=== PATIENT | female | born 1975 | race Caucasian/White ===

== ENCOUNTER 2017-06-02 11:06 | Inpatient (IN) | payer OTHER ==
[~2017-06-02] VITALS: Ht 160 cm; Wt 56.1 kg
[~2017-06-02 11:06] MED LIST: ACET500 PO; ALBU90OI INH; ALPR.5 PO; AMOX500 PO; ATEN25 PO; Acyclovir800 MG PO; Ativan0.5 MG PO; Ativan1 MG SL; BCP; BUSP10 PO; CEFU500 PO; CIPR500 PO; CIPRO500 MG PO; Chloraseptic177 ML PO; DIAZ5 PO; DIPH50 PO; DULO30 PO; ERYT.5TO LEFTEYE; Esgic Tablet1 EACH PO; FAMO20 PO; FURO20 PO; GABA400 PO; HYDHCL25 PO; HYDR1TAB94 PO; Humalog100 UNIT/1 SC; INSDET100 SQ; INSLI75/25 SC; INSULANPEN SC; K-Dur 20 meq T20 MEQ PO; LEVFLO500 PO; MAGOXI400 PO; METO100ER PO; MUPI2TO TOP; Macrobid 100 M100 MG PO; NAPR500 PO; Naprosyn500 MG PO; Norco 5-325 Ta1 EACH PO; ONDA4 PO; ONDA4ODT PO; OXYACE5T PO; OXYC1TAB11 PO; PREG50 PO; PREG75 PO; PROM25 PO; Percocet 5-3251 EACH PO; RAMI5 PO; SPACE CHAMBER1 EACH MC; TOCO1000 PO; TOPI100 PO; Ultram50 MG PO; VITB2 PO; Vistaril50 MG PO; Zofran Odt4 MG SL; Zofran8 MG PO
[2017-06-02 11:59] LABS: BASOPHILS ABSOLUTE AUTO 0.03 K/mm3 (0.00-0.23); BASOPHILS PERCENT AUTO 0 % (0-2); EOSINOPHILS ABSOLUTE AUTO 0.14 K/mm3 (0.00-0.68); EOSINOPHILS PERCENT AUTO 1 % (0-6); Hematocrit 38.8 % (33.0-51.0); Hemoglobin 13.3 g/dL (11.5-16.0); IMMATURE GRAN ABSOLUTE AUTO 0.05 K/mm3 (0.00-0.10); IMMATURE GRAN PERCENT AUTO 0 % (0-1); LYMPHOCYTES ABSOLUTE AUTO 1.09 K/mm3 (0.84-5.20); LYMPHOCYTES PERCENT AUTO 8 % (21-46); MONOCYTES ABSOLUTE AUTO 0.76 K/mm3 (0.16-1.47); MONOCYTES PERCENT AUTO 5 % (4-13); Mean Corpuscular HGB 32.9 pg (26.0-34.0); Mean Corpuscular HGB Conc 34.3 g/dL (31.5-36.5); Mean Corpuscular Volume 96 fL (80-100); Mean Platelet Volume 11.7 fL (9.1-12.4); NEUTROPHILS ABSOLUTE AUTO 12.48 K/mm3 (1.96-9.15); NEUTROPHILS PERCENT AUTO 86 % (41-73); Platelet Count 173 K/mm3 (150-400); RDW Coefficient Variation 12.3 % (11.7-14.2); RDW Standard Deviation 43.1 fL (35.1-46.3); Red Blood Cell Count 4.04 M/mm3 (3.80-5.20); White Blood Cell Count 14.55 K/mm3 (4.00-11.30)
[2017-06-02 12:09] LABS: Alanine Aminotransfer (ALT/SGP 19 U/L (12-78); Albumin, Blood 4.4 g/dL (3.4-5.0); Albumin/Globulin Ratio 1.6 (0.8-1.8); Alk Phos 42 U/L (50-136); Anion Gap 10 mmol/L (6-16); Aspartate Aminotrans (AST/SGOT 15 U/L (12-37); Bilirubin, Total 0.7 mg/dL (0.1-1.0); Blood Urea Nitrogen 27 mg/dL (8-24); Bun/Creatinine Ratio 33.6 (12.0-20.0); CO2, Blood 20 mmol/L (21-32); Calcium, Blood 8.6 mg/dL (8.5-10.1); Chloride, Blood 103 mmol/L (98-108); Globulin, Blood 2.7 g/dL (2.2-4.0); Glomerular Filtration Rate >60 (60-); Glucose, Blood 456 mg/dL (70-99); Sodium, Blood 133 mmol/L (136-145); Total Protein, Blood 7.1 g/dL (6.4-8.2)
[2017-06-02 12:11] LABS: Bilirubin, Urine Neg (Neg); Blood, Urine 4+ (Neg); Glucose Qualitative, Urine 4+ (Neg); Ketones, Urine Neg (Neg); Leukocyte Esterase, Urine 2+ (Neg); Nitrite, Urine Pos (Neg); Protein, Urine Neg (Neg); Urobilinogen, Urine NORM (Normal)
[2017-06-02 12:19] LABS: Beta-hydroxybutyrate 3.2 mg/dL (0.2-2.8)
[2017-06-02 12:23] LABS: Appearance, Urine Hazy (Clear); Color, Urine Yellow (P-Yellow)
[2017-06-02 12:24] LABS: Bacteria Mod /hpf; Squamous Epithelial Cells Rare /hpf (Few); White Blood Cells, Urine TNTC /hpf (0-5)
[2017-06-02] MEDS ORDERED: INSULANPEN (12:34)
[2017-06-02] MEDS ORDERED: TRAM50 PO (12:35)
[2017-06-02] MEDS ORDERED: IRON256 MG (12:37)
[2017-06-02] MEDS ORDERED: CHOL10002 PO (16:38)
[2017-06-02] MEDS ORDERED: IRON150C PO (16:39)
[2017-06-03 04:56] LABS: BASOPHILS ABSOLUTE AUTO 0.03 K/mm3 (0.00-0.23); BASOPHILS PERCENT AUTO 1 % (0-2); EOSINOPHILS ABSOLUTE AUTO 0.21 K/mm3 (0.00-0.68); EOSINOPHILS PERCENT AUTO 4 % (0-6); Hemoglobin 10.8 g/dL (11.5-16.0); IMMATURE GRAN PERCENT AUTO 0 % (0-1); LYMPHOCYTES ABSOLUTE AUTO 1.79 K/mm3 (0.84-5.20); LYMPHOCYTES PERCENT AUTO 30 % (21-46); MONOCYTES ABSOLUTE AUTO 0.32 K/mm3 (0.16-1.47); MONOCYTES PERCENT AUTO 5 % (4-13); Mean Corpuscular HGB 32.5 pg (26.0-34.0); Mean Corpuscular HGB Conc 32.7 g/dL (31.5-36.5); Mean Platelet Volume 11.6 fL (9.1-12.4); NEUTROPHILS ABSOLUTE AUTO 3.55 K/mm3 (1.96-9.15); NEUTROPHILS PERCENT AUTO 60 % (41-73); Platelet Count 127 K/mm3 (150-400); RDW Coefficient Variation 12.9 % (11.7-14.2); RDW Standard Deviation 46.6 fL (35.1-46.3); Red Blood Cell Count 3.32 M/mm3 (3.80-5.20)
[2017-06-03 05:06] LABS: Mean Corpuscular Volume 99 fL (80-100)
[2017-06-03 05:29] LABS: Alanine Aminotransfer (ALT/SGP 14 U/L (12-78); Albumin, Blood 2.9 g/dL (3.4-5.0); Albumin/Globulin Ratio 1.3 (0.8-1.8); Alk Phos 28 U/L (50-136); Aspartate Aminotrans (AST/SGOT 12 U/L (12-37); Bilirubin, Total 0.2 mg/dL (0.1-1.0); Blood Urea Nitrogen 21 mg/dL (8-24); Bun/Creatinine Ratio 25.3 (12.0-20.0); CO2, Blood 24 mmol/L (21-32); Calcium, Blood 7.9 mg/dL (8.5-10.1); Chloride, Blood 113 mmol/L (98-108); Creatinine, Blood 0.83 mg/dL (0.40-1.00); Globulin, Blood 2.2 g/dL (2.2-4.0); Glomerular Filtration Rate >60 (60-); Glucose, Blood 64 mg/dL (70-99); Potassium, Blood 4.3 mmol/L (3.5-5.5)
[2017-06-03 05:30] LABS: Anion Gap 7 mmol/L (6-16); Sodium, Blood 144 mmol/L (136-145); Total Protein, Blood 5.1 g/dL (6.4-8.2)
[2017-06-04 05:16] LABS: BASOPHILS ABSOLUTE AUTO 0.02 K/mm3 (0.00-0.23); BASOPHILS PERCENT AUTO 0 % (0-2); EOSINOPHILS ABSOLUTE AUTO 0.12 K/mm3 (0.00-0.68); EOSINOPHILS PERCENT AUTO 3 % (0-6); Hematocrit 33.3 % (33.0-51.0); Hemoglobin 10.9 g/dL (11.5-16.0); IMMATURE GRAN PERCENT AUTO 0 % (0-1); LYMPHOCYTES ABSOLUTE AUTO 1.19 K/mm3 (0.84-5.20); LYMPHOCYTES PERCENT AUTO 26 % (21-46); MONOCYTES ABSOLUTE AUTO 0.23 K/mm3 (0.16-1.47); MONOCYTES PERCENT AUTO 5 % (4-13); Mean Corpuscular HGB 32.8 pg (26.0-34.0); Mean Corpuscular HGB Conc 32.7 g/dL (31.5-36.5); Mean Corpuscular Volume 100 fL (80-100); Mean Platelet Volume 11.3 fL (9.1-12.4); NEUTROPHILS ABSOLUTE AUTO 3.09 K/mm3 (1.96-9.15); NEUTROPHILS PERCENT AUTO 67 % (41-73); Platelet Count 129 K/mm3 (150-400); RDW Coefficient Variation 12.8 % (11.7-14.2); RDW Standard Deviation 46.7 fL (35.1-46.3); Red Blood Cell Count 3.32 M/mm3 (3.80-5.20); White Blood Cell Count 4.65 K/mm3 (4.00-11.30)
[2017-06-04 05:35] LABS: Anion Gap 5 mmol/L (6-16); Blood Urea Nitrogen 16 mg/dL (8-24); Bun/Creatinine Ratio 16.5 (12.0-20.0); CO2, Blood 24 mmol/L (21-32); Chloride, Blood 111 mmol/L (98-108); Creatinine, Blood 0.97 mg/dL (0.40-1.00); Glomerular Filtration Rate >60 (60-); Glucose, Blood 150 mg/dL (70-99); Potassium, Blood 4.2 mmol/L (3.5-5.5); Sodium, Blood 140 mmol/L (136-145)
[2017-06-05] MEDS ORDERED: SACC250C (12:03)
[2017-06-05] MEDS ORDERED: CEFU500T30 PO (12:04)
[2017-06-05] MEDS ORDERED: Zofran4 MG PO (14:06)
[2017-08-31] MEDS ORDERED: TOBRADEX ST EYE5 ML RIGHTEYE (10:27)
[2017-11-25] MEDS ORDERED: HYDR1TAB94 PO (19:30)
[2017-12-15] MEDS ORDERED: Zofran Odt4 MG PO (21:09)
[2018-01-23] MEDS ORDERED: Cheratussin AC118 ML PO (17:15)
[2018-04-16] MEDS ORDERED: Zofran Odt8 MG SL (21:50)
[2018-04-16] MEDS ORDERED: Percocet 5-3251 EACH PO (21:50)
[2018-04-16] MEDS ORDERED: POTCHL20ER PO (21:50)
== END 2017-06-05 13:40 | disposition home or self-care (01) | DRG 690 ==
LOC: ER 11:06 → MEDS 14:10 → ENPENDDIS 06-05 08:00 → MEDS 06-05 13:40
PROVIDERS: Emergency Medicine; Internal Medicine
DX: N10 Acute pyelonephritis (principal); D69.6 Thrombocytopenia, unspecified; E10.40 Type 1 diabetes mellitus with diabetic neuropathy, unspecified; I95.9 Hypotension, unspecified; E10.649 Type 1 diabetes mellitus with hypoglycemia without coma; E86.0 Dehydration; B96.20 Unspecified Escherichia coli [E. coli] as the cause of diseases classified elsewhere; D64.9 Anemia, unspecified; I10 Essential (primary) hypertension; G43.909 Migraine, unspecified, not intractable, without status migrainosus; G44.89 Other headache syndrome; F45.21 Hypochondriasis; Z88.2 Allergy status to sulfonamides; Z88.8 Allergy status to other drugs, medicaments and biological substances; Z88.1 Allergy status to other antibiotic agents; Z91.040 Latex allergy status; Z79.4 Long term (current) use of insulin; Z79.899 Other long term (current) drug therapy; Z87.440 Personal history of urinary (tract) infections; Z86.79 Personal history of other diseases of the circulatory system; Z86.14 Personal history of Methicillin resistant Staphylococcus aureus infection
CPT/HCPCS: 36415; 76770; 80048; 80053; 81001; 82010; 82947; 83605; 85025; 87040; 87077; 87086; 87186; 96361; 96365; 96366; 96375; 96376; 99285; J0696; J1170; J1650; J1885; J2270; J2405; J2550; J7030; J7120

== ENCOUNTER → 2017-07-01 | Outpatient (CLI) | payer OTHER ==
[~2017-07-01] MED LIST changes: +CEFU500T30 PO; +CHOL10002 PO; +Cheratussin AC118 ML PO; +INSULANPEN; +IRON150C PO; +IRON256 MG; +POTCHL20ER PO; +SACC250C; +TOBRADEX ST EYE5 ML RIGHTEYE; +TRAM50 PO; +Zofran Odt4 MG PO; +Zofran Odt8 MG SL; +Zofran4 MG PO
[2017-07-02 18:41] LABS: Protein, Urine Quantitative 9.1 mg/dL (0.0-11.9)
[2017-07-02 18:52] LABS: Microalbumin, Urine Quant. <5.000 mg/L (0.000-20.000)
== END | disposition home or self-care (01) ==
LOC: LAB 20:45 → LAB SHORT 20:45 → LAB FUT 06-28 08:55
PROVIDERS: Internal Medicine Nephrology
DX: N18.2 Chronic kidney disease, stage 2 (mild) (principal); D63.1 Anemia in chronic kidney disease; N25.81 Secondary hyperparathyroidism of renal origin; E55.9 Vitamin D deficiency, unspecified
CPT/HCPCS: 81050; 82043; 84156

== ENCOUNTER → 2017-07-08 | Outpatient (CLI) | payer OTHER | LOC: LAB EV 17:01 | DX: N30.00 Acute cystitis without hematuria (principal) | CPT/HCPCS: 87086 ==

== ENCOUNTER 2017-08-07 15:35 | Emergency (ER) | payer OTHER ==
[~2017-08-07] VITALS: Ht 160 cm; Wt 56.7 kg
[~2017-08-07 15:35] MED LIST changes: -Cheratussin AC118 ML PO; -POTCHL20ER PO; -TOBRADEX ST EYE5 ML RIGHTEYE; -Zofran Odt4 MG PO; -Zofran Odt8 MG SL
[2017-08-31] MEDS ORDERED: TOBRADEX ST EYE5 ML RIGHTEYE (10:27)
[2017-11-25] MEDS ORDERED: HYDR1TAB94 PO (19:30)
[2017-12-15] MEDS ORDERED: Zofran Odt4 MG PO (21:09)
[2018-01-23] MEDS ORDERED: Cheratussin AC118 ML PO (17:15)
[2018-04-16] MEDS ORDERED: Percocet 5-3251 EACH PO (21:50)
[2018-04-16] MEDS ORDERED: POTCHL20ER PO (21:50)
[2018-04-16] MEDS ORDERED: Zofran Odt8 MG SL (21:50)
== END 2017-08-07 17:40 | disposition home or self-care (01) ==
LOC: ER 15:35
DX: M25.561 Pain in right knee (principal); Z91.040 Latex allergy status; Z88.8 Allergy status to other drugs, medicaments and biological substances; Z88.1 Allergy status to other antibiotic agents; Z88.2 Allergy status to sulfonamides; Z79.4 Long term (current) use of insulin; Z79.899 Other long term (current) drug therapy; I10 Essential (primary) hypertension; E11.9 Type 2 diabetes mellitus without complications; R07.9 Chest pain, unspecified; R00.2 Palpitations; R06.02 Shortness of breath; R42 Dizziness and giddiness
CPT/HCPCS: 73562-RT; 78452; 93225; 93226; 93306; 99283; A9500; J0280; J1885; J2785

== ENCOUNTER → 2017-11-13 | Outpatient (CLI) | payer OTHER ==
[~2017-11-13] MED LIST changes: +TOBRADEX ST EYE5 ML RIGHTEYE
== END | disposition home or self-care (01) ==
LOC: LAB SHORT 14:15 → LAB 14:15
DX: Z22.322 Carrier or suspected carrier of Methicillin resistant Staphylococcus aureus (principal)
CPT/HCPCS: 87070; 87077; 87147; 87186; 87205

== ENCOUNTER 2018-02-08 09:07 | Emergency (ER) | payer OTHER ==
[~2018-02-08] VITALS: Ht 160 cm; Wt 57.1 kg
[~2018-02-08 09:07] MED LIST changes: +Cheratussin AC118 ML PO; +Zofran Odt4 MG PO
[2018-02-08 10:40] LABS: Calcium, Ionized (POC) 1.14 mmol/L (1.10-1.46); Chloride (POC) 104 mmol/L (98-108); Glucose (ISTAT POC) 114 mg/dL (70-99); Hemoglobin (POC) 12.2 g/dL (12.0-16.0); Potassium (POC) 3.5 mmol/L (3.5-5.5); Sodium (POC) 139 mmol/L (135-148); Total CO2 (POC) 24 mmol/L (21-32)
[2018-02-08] MEDS ORDERED: Norco 5-325 Ta1 EACH PO (10:50)
[2018-02-08] MEDS ORDERED: Zofran Odt4 MG SL (10:50)
== END 2018-02-08 11:30 | disposition home or self-care (01) ==
LOC: ER 09:07
PROVIDERS: Emergency Medicine
DX: L76.22 Postprocedural hemorrhage of skin and subcutaneous tissue following other procedure (principal); I10 Essential (primary) hypertension; Z91.040 Latex allergy status; Z88.1 Allergy status to other antibiotic agents; Z88.2 Allergy status to sulfonamides; Z91.048 Other nonmedicinal substance allergy status; Z88.8 Allergy status to other drugs, medicaments and biological substances; Z79.899 Other long term (current) drug therapy
CPT/HCPCS: 80047; 85014; 99283

== ENCOUNTER → 2020-08-18 | Outpatient (CLI) | payer OTHER ==
[~2020-08-18] MED LIST changes: +POTCHL20ER PO; +Zofran Odt8 MG SL
[2020-08-19 15:11] LABS: HPV 16 Negative (Negative); HPV 18 Negative (Negative); HPV OTHER HR TYPES Negative (Negative)
== END ==
LOC: LAB SHORT 11:25 → LAB UCHC 11:25
PROVIDERS: Family Medicine
DX: Z09 Encounter for follow-up examination after completed treatment for conditions other than malignant neoplasm (principal); Z87.42 Personal history of other diseases of the female genital tract
CPT/HCPCS: 87624; G0123

== ENCOUNTER 2022-06-06 15:10 | Emergency (ER) | payer OTHER ==
[~2022-06-06] VITALS: Ht 160 cm; Wt 56.7 kg
[2022-06-06 16:08] LABS: BASOPHILS ABSOLUTE AUTO 0.05 K/mm3 (0.00-0.23); BASOPHILS PERCENT AUTO 1 % (0-2); EOSINOPHILS ABSOLUTE AUTO 0.07 K/mm3 (0.00-0.68); EOSINOPHILS PERCENT AUTO 1 % (0-6); Hematocrit 39.2 % (33.0-51.0); Hemoglobin 13.8 g/dL (11.5-16.0); IMMATURE GRAN ABSOLUTE AUTO 0.03 K/mm3 (0.00-0.10); IMMATURE GRAN PERCENT AUTO 0 % (0-1); LYMPHOCYTES ABSOLUTE AUTO 1.35 K/mm3 (0.84-5.20); LYMPHOCYTES PERCENT AUTO 16 % (21-46); MONOCYTES ABSOLUTE AUTO 0.64 K/mm3 (0.16-1.47); MONOCYTES PERCENT AUTO 8 % (4-13); Mean Corpuscular HGB 34.8 pg (26.0-34.0); Mean Corpuscular HGB Conc 35.2 g/dL (31.5-36.5); Mean Corpuscular Volume 99 fL (80-100); Mean Platelet Volume 11.1 fL (9.1-12.4); NEUTROPHILS ABSOLUTE AUTO 6.23 K/mm3 (1.96-9.15); NEUTROPHILS PERCENT AUTO 75 % (41-73); Platelet Count 201 K/mm3 (150-400); RDW Coefficient Variation 11.3 % (11.7-14.2); RDW Standard Deviation 41.2 fL (35.1-46.3); Red Blood Cell Count 3.96 M/mm3 (3.80-5.20); White Blood Cell Count 8.37 K/mm3 (4.00-11.30)
[2022-06-06 16:32] LABS: Albumin, Blood 4.1 g/dL (3.4-5.0); Albumin/Globulin Ratio 1.2 (0.8-1.8); Bilirubin, Total 0.3 mg/dL (0.1-1.0); Bun/Creatinine Ratio 35.3 (12.0-20.0); Calcium, Blood 8.4 mg/dL (8.5-10.1); Creatinine, Blood 1.16 mg/dL (0.40-1.00); Globulin, Blood 3.4 g/dL (2.2-4.0); Potassium, Blood 2.5 mmol/L (3.5-5.5); Total Protein, Blood 7.5 g/dL (6.4-8.2)
[2022-06-06] MEDS ORDERED: POTCHL20ER PO (21:07)
[2022-06-06] MEDS ORDERED: OMEP20ER PO (21:07)
== END 2022-06-06 21:55 | disposition home or self-care (01) ==
LOC: ER 15:10
PROVIDERS: Physician Assistant
DX: R07.9 Chest pain, unspecified (principal); E10.22 Type 1 diabetes mellitus with diabetic chronic kidney disease; I12.9 Hypertensive chronic kidney disease with stage 1 through stage 4 chronic kidney disease, or unspecified chronic kidney disease; N18.30 Chronic kidney disease, stage 3 unspecified; Z79.899 Other long term (current) drug therapy; Z79.4 Long term (current) use of insulin; Z88.2 Allergy status to sulfonamides; Z91.09 Other allergy status, other than to drugs and biological substances; Z88.1 Allergy status to other antibiotic agents
CPT/HCPCS: 36415; 71046; 80053; 82947; 83735; 84484; 85025; 93005; 93010; A9270; J1885; J7030

== ENCOUNTER → 2022-07-10 | Outpatient (CLI) | payer OTHER ==
[~2022-07-10] MED LIST changes: +OMEP20ER PO
[2022-07-10 19:28] LABS: BASOPHILS ABSOLUTE AUTO 0.04 K/mm3 (0.00-0.23); BASOPHILS PERCENT AUTO 1 % (0-2); EOSINOPHILS ABSOLUTE AUTO 0.04 K/mm3 (0.00-0.68); EOSINOPHILS PERCENT AUTO 1 % (0-6); Hematocrit 44.9 % (33.0-51.0); Hemoglobin 15.7 g/dL (11.5-16.0); IMMATURE GRAN ABSOLUTE AUTO 0.02 K/mm3 (0.00-0.10); IMMATURE GRAN PERCENT AUTO 0 % (0-1); LYMPHOCYTES ABSOLUTE AUTO 1.57 K/mm3 (0.84-5.20); LYMPHOCYTES PERCENT AUTO 21 % (21-46); MONOCYTES ABSOLUTE AUTO 0.48 K/mm3 (0.16-1.47); MONOCYTES PERCENT AUTO 6 % (4-13); Mean Corpuscular Volume 97 fL (80-100); Mean Platelet Volume 11.1 fL (9.1-12.4); NEUTROPHILS ABSOLUTE AUTO 5.42 K/mm3 (1.96-9.15); NEUTROPHILS PERCENT AUTO 72 % (41-73); Platelet Count 244 K/mm3 (150-400); RDW Coefficient Variation 11.4 % (11.7-14.2); RDW Standard Deviation 40.7 fL (35.1-46.3); Red Blood Cell Count 4.62 M/mm3 (3.80-5.20); White Blood Cell Count 7.57 K/mm3 (4.00-11.30)
[2022-07-10 21:33] LABS: Bun/Creatinine Ratio 33.8 (12.0-20.0); Calcium, Blood 9.3 mg/dL (8.5-10.1); Creatinine, Blood 0.92 mg/dL (0.40-1.00); Potassium, Blood 3.4 mmol/L (3.5-5.5)
[2022-07-13 00:11] LABS: HIV AB/P24 AG SCREEN Non Reactive (Non Reactive)
== END | disposition home or self-care (01) ==
LOC: LAB SHORT 13:45
PROVIDERS: Family Medicine
DX: Z11.4 Encounter for screening for human immunodeficiency virus [HIV] (principal); D64.9 Anemia, unspecified; E87.6 Hypokalemia
CPT/HCPCS: 80048; 85025

== ENCOUNTER 2022-12-18 22:08 | Emergency (ER) | payer OTHER ==
[~2022-12-18] VITALS: Ht 165.1 cm; Wt 68.0 kg
[2022-12-18 22:33] LABS: BASOPHILS ABSOLUTE AUTO 0.03 K/mm3 (0.00-0.23); BASOPHILS PERCENT AUTO 1 % (0-2); EOSINOPHILS ABSOLUTE AUTO 0.16 K/mm3 (0.00-0.68); EOSINOPHILS PERCENT AUTO 3 % (0-6); Hematocrit 34.1 % (33.0-51.0); Hemoglobin 11.6 g/dL (11.5-16.0); IMMATURE GRAN PERCENT AUTO 0 % (0-1); LYMPHOCYTES ABSOLUTE AUTO 2.23 K/mm3 (0.84-5.20); LYMPHOCYTES PERCENT AUTO 36 % (21-46); MONOCYTES ABSOLUTE AUTO 0.38 K/mm3 (0.16-1.47); MONOCYTES PERCENT AUTO 6 % (4-13); Mean Corpuscular HGB 34.2 pg (26.0-34.0); Mean Corpuscular Volume 101 fL (80-100); Mean Platelet Volume 11.5 fL (9.1-12.4); NEUTROPHILS ABSOLUTE AUTO 3.47 K/mm3 (1.96-9.15); NEUTROPHILS PERCENT AUTO 55 % (41-73); Platelet Count 190 K/mm3 (150-400); RDW Coefficient Variation 12.8 % (11.7-14.2); RDW Standard Deviation 46.5 fL (35.1-46.3); Red Blood Cell Count 3.39 M/mm3 (3.80-5.20); White Blood Cell Count 6.27 K/mm3 (4.00-11.30)
[2022-12-18 23:01] LABS: Base Excess Venous -6.7 mmol/L; Bicarbonate Venous 19.9 mmol/L (24.0-30.0); PCO2 Venous 31.1 mmHg (38-42); pH Blood Venous 7.38 (7.34-7.37)
[2022-12-18 23:09] LABS: Albumin/Globulin Ratio 1.1 (0.8-1.8); Bilirubin, Total 0.3 mg/dL (0.1-1.0); Bun/Creatinine Ratio 18.9 (12.0-20.0); Creatinine, Blood 0.74 mg/dL (0.40-1.00); Globulin, Blood 2.7 g/dL (2.2-4.0); Potassium, Blood 3.4 mmol/L (3.5-5.5); Total Protein, Blood 5.7 g/dL (6.4-8.2)
[2022-12-19 01:45] VITALS: BP 115/67
[2022-12-19 01:52] LABS: Source, Urine Straight Cath
[2022-12-19 01:54] LABS: Appearance, Urine Clear (Clear); Bilirubin, Urine Neg (Neg); Blood, Urine Neg (Neg); Glucose Qualitative, Urine 4+ (Neg); Ketones, Urine Neg (Neg); Leukocyte Esterase, Urine Neg (Neg); Nitrite, Urine Neg (Neg); Protein, Urine Neg (Neg); Specific Gravity, Urine 1.015 (1.003-1.022); Urobilinogen, Urine NORM (Normal)
[2022-12-19 01:55] LABS: Color, Urine Pale Yellow (P-Yellow)
[2022-12-19 02:05] LABS: U Amphetamine Screen DETECTED; U Methamphetamine Screen DETECTED
[2022-12-19 02:06] LABS: U Barbituate Screen Not Detected; U Benzodiazapine Screen Not Detected; U Buprenorphine Screen Not Detected; U Cannabinoids Screen Not Detected; U Cocaine Screen Not Detected; U Methadone Screen Not Detected; U Opiates Screen Not Detected; U Oxycodone Screen Not Detected; U Phencyclidine Screen Not Detected; U Propoxyphene Screen Not Detected
== END 2022-12-19 02:41 | disposition home or self-care (01) ==
LOC: ER 22:08
PROVIDERS: Student in an Organized Health Care Education/Training Program
DX: E10.65 Type 1 diabetes mellitus with hyperglycemia (principal); F10.129 Alcohol abuse with intoxication, unspecified; F15.90 Other stimulant use, unspecified, uncomplicated; Y90.8 Blood alcohol level of 240 mg/100 ml or more; Z91.040 Latex allergy status; Z88.8 Allergy status to other drugs, medicaments and biological substances; Z88.2 Allergy status to sulfonamides; Z88.1 Allergy status to other antibiotic agents; Z88.5 Allergy status to narcotic agent; Z79.899 Other long term (current) drug therapy; Z79.4 Long term (current) use of insulin; G43.909 Migraine, unspecified, not intractable, without status migrainosus; E11.22 Type 2 diabetes mellitus with diabetic chronic kidney disease; I12.9 Hypertensive chronic kidney disease with stage 1 through stage 4 chronic kidney disease, or unspecified chronic kidney disease; N18.30 Chronic kidney disease, stage 3 unspecified
CPT/HCPCS: 80053; 81003; 82010; 82803; 82947; 84703; 85025; 96361; 96365; 96366; 96375; 99285-25; A9270; G0480; J0780; J1815; J2405; J3480; J7030

== ENCOUNTER 2023-05-23 12:51 | Emergency (ER) | payer OTHER ==
[~2023-05-23] VITALS: Ht 160 cm; Wt 59.0 kg
[~2023-05-23 12:51] MED LIST changes: +Cyclobenzaprine5 MG PO
[2023-05-23 12:54] VITALS: BP 127/72
[2023-05-23 13:48] LABS: Bilirubin, Total 0.4 mg/dL (0.1-1.0); Bun/Creatinine Ratio 20.1 (12.0-20.0); Calcium, Blood 9.3 mg/dL (8.5-10.1); Creatinine, Blood 0.7 mg/dL (0.40-1.00); Potassium, Blood 3.9 mmol/L (3.5-5.5)
[2023-05-23 13:54] LABS: BASOPHILS ABSOLUTE AUTO 0.02 K/mm3 (0.00-0.23); BASOPHILS PERCENT AUTO 0 % (0-2); EOSINOPHILS ABSOLUTE AUTO 0.03 K/mm3 (0.00-0.68); EOSINOPHILS PERCENT AUTO 0 % (0-6); Hematocrit 43.1 % (33.0-51.0); Hemoglobin 15.1 g/dL (11.5-16.0); IMMATURE GRAN ABSOLUTE AUTO 0.02 K/mm3 (0.00-0.10); IMMATURE GRAN PERCENT AUTO 0 % (0-1); LYMPHOCYTES ABSOLUTE AUTO 0.73 K/mm3 (0.84-5.20); LYMPHOCYTES PERCENT AUTO 10 % (21-46); MONOCYTES ABSOLUTE AUTO 0.27 K/mm3 (0.16-1.47); MONOCYTES PERCENT AUTO 4 % (4-13); Mean Corpuscular HGB 33.4 pg (26.0-34.0); Mean Corpuscular Volume 95 fL (80-100); NEUTROPHILS ABSOLUTE AUTO 5.93 K/mm3 (1.96-9.15); NEUTROPHILS PERCENT AUTO 85 % (41-73); Platelet Count 188 K/mm3 (150-400); RDW Coefficient Variation 12.7 % (11.7-14.2); RDW Standard Deviation 44.7 fL (35.1-46.3); Red Blood Cell Count 4.52 M/mm3 (3.80-5.20)
[2023-05-23 15:01] LABS: Influenza A, PCR NEGATIVE (NEGATIVE); Influenza B, PCR NEGATIVE (NEGATIVE); Resp Syncytial Virus, PCR NEGATIVE (NEGATIVE); SARS-Cov-2 (COVID-19) PCR, MMC NEGATIVE (NEGATIVE)
[2023-05-23] MEDS ORDERED: PHENERGAN25 MG PR (16:18)
== END 2023-05-23 16:28 | disposition home or self-care (01) ==
LOC: ER 12:51
PROVIDERS: Physician Assistant
DX: R11.2 Nausea with vomiting, unspecified (principal); Z20.822 Contact with and (suspected) exposure to COVID-19; G43.909 Migraine, unspecified, not intractable, without status migrainosus; E10.22 Type 1 diabetes mellitus with diabetic chronic kidney disease; I12.9 Hypertensive chronic kidney disease with stage 1 through stage 4 chronic kidney disease, or unspecified chronic kidney disease; N18.30 Chronic kidney disease, stage 3 unspecified; M79.7 Fibromyalgia; Z79.899 Other long term (current) drug therapy; Z88.1 Allergy status to other antibiotic agents; Z88.2 Allergy status to sulfonamides; Z88.5 Allergy status to narcotic agent; Z88.8 Allergy status to other drugs, medicaments and biological substances; Z91.040 Latex allergy status
CPT/HCPCS: 0241U; 80053; 84703; 85025; 96361; 96374; 96375; 99284-25; J1790; J2405; J7030

== ENCOUNTER 2023-07-12 20:07 | Emergency (ER) | payer OTHER ==
[~2023-07-12] VITALS: Ht 160 cm; Wt 59.0 kg
[~2023-07-12 20:07] MED LIST changes: +PHENERGAN25 MG PR
[2023-07-12 20:55] LABS: BASOPHILS ABSOLUTE AUTO 0.04 K/mm3 (0.00-0.23); BASOPHILS PERCENT AUTO 1 % (0-2); EOSINOPHILS ABSOLUTE AUTO 0.06 K/mm3 (0.00-0.68); EOSINOPHILS PERCENT AUTO 1 % (0-6); Hematocrit 37.8 % (33.0-51.0); Hemoglobin 13.3 g/dL (11.5-16.0); IMMATURE GRAN ABSOLUTE AUTO 0.01 K/mm3 (0.00-0.10); IMMATURE GRAN PERCENT AUTO 0 % (0-1); LYMPHOCYTES ABSOLUTE AUTO 1.63 K/mm3 (0.84-5.20); LYMPHOCYTES PERCENT AUTO 27 % (21-46); MONOCYTES ABSOLUTE AUTO 0.16 K/mm3 (0.16-1.47); MONOCYTES PERCENT AUTO 3 % (4-13); Mean Corpuscular HGB Conc 35.2 g/dL (31.5-36.5); Mean Corpuscular Volume 97 fL (80-100); Mean Platelet Volume 10.7 fL (9.1-12.4); NEUTROPHILS ABSOLUTE AUTO 4.24 K/mm3 (1.96-9.15); NEUTROPHILS PERCENT AUTO 69 % (41-73); Platelet Count 181 K/mm3 (150-400); RDW Coefficient Variation 11.9 % (11.7-14.2); RDW Standard Deviation 42.2 fL (35.1-46.3); Red Blood Cell Count 3.91 M/mm3 (3.80-5.20); White Blood Cell Count 6.14 K/mm3 (4.00-11.30)
[2023-07-12 21:04] LABS: Albumin/Globulin Ratio 1.2 (0.8-1.8); Bilirubin, Total 0.2 mg/dL (0.1-1.0); Bun/Creatinine Ratio 22.4 (12.0-20.0); Calcium, Blood 9.3 mg/dL (8.5-10.1); Creatinine, Blood 1.16 mg/dL (0.40-1.00); Globulin, Blood 3.2 g/dL (2.2-4.0); Potassium, Blood 3.2 mmol/L (3.5-5.5); Total Protein, Blood 7.2 g/dL (6.4-8.2)
[2023-07-12] MEDS ORDERED: Potassium Chloride 20 MEQ TabCR PO ONE (22:50)
[2023-07-12] MEDS ORDERED: Ondansetron HCl 2 MG / ML 2ML Vial IV ONE (22:50)
[2023-07-12] MEDS ORDERED: NS 1,000 ML IV SCH (22:50)
[2023-07-12] MEDS ORDERED: Ketorolac Tromethamine 30mg Vial IV ONE (23:00)
[2023-07-13] VITALS: BP 114/61
[2023-07-13 00:16] LABS: Influenza A, PCR NEGATIVE (NEGATIVE); Influenza B, PCR NEGATIVE (NEGATIVE); Resp Syncytial Virus, PCR NEGATIVE (NEGATIVE); SARS-Cov-2 (COVID-19) PCR, MMC NEGATIVE (NEGATIVE)
[2023-07-13] MEDS ORDERED: RX Prepack 2 Tabs Ondansetron ODT 4MG UD ONE (00:40)
[2023-07-13] MEDS ORDERED: ONDA4ODT MM (00:41)
== END 2023-07-13 01:05 | disposition home or self-care (01) ==
LOC: ER 20:07
PROVIDERS: Physician Assistant; Student in an Organized Health Care Education/Training Program
DX: R11.2 Nausea with vomiting, unspecified (principal); M79.641 Pain in right hand; E87.6 Hypokalemia; I12.9 Hypertensive chronic kidney disease with stage 1 through stage 4 chronic kidney disease, or unspecified chronic kidney disease; E10.22 Type 1 diabetes mellitus with diabetic chronic kidney disease; N18.30 Chronic kidney disease, stage 3 unspecified; M79.7 Fibromyalgia; Z11.52 Encounter for screening for COVID-19; Z98.890 Other specified postprocedural states; Z91.040 Latex allergy status; Z88.1 Allergy status to other antibiotic agents; Z88.2 Allergy status to sulfonamides; Z91.048 Other nonmedicinal substance allergy status; Z88.5 Allergy status to narcotic agent; Z88.8 Allergy status to other drugs, medicaments and biological substances; Z79.899 Other long term (current) drug therapy
CPT/HCPCS: 0241U; 71046; 80053; 85025; 93005; 93010; 96361; 96374; 96375; 99284-25; A9270; J1885; J2405; J7030

== ENCOUNTER → 2023-09-12 | Outpatient (CLI) | payer OTHER ==
[~2023-09-12] MED LIST changes: +ONDA4ODT MM
[2023-09-12 14:07] LABS: BASOPHILS ABSOLUTE AUTO 0.04 K/mm3 (0.00-0.23); BASOPHILS PERCENT AUTO 0 % (0-2); EOSINOPHILS ABSOLUTE AUTO 0.05 K/mm3 (0.00-0.68); EOSINOPHILS PERCENT AUTO 1 % (0-6); Hematocrit 37.4 % (33.0-51.0); IMMATURE GRAN ABSOLUTE AUTO 0.04 K/mm3 (0.00-0.10); IMMATURE GRAN PERCENT AUTO 0 % (0-1); LYMPHOCYTES ABSOLUTE AUTO 1.32 K/mm3 (0.84-5.20); LYMPHOCYTES PERCENT AUTO 15 % (21-46); MONOCYTES ABSOLUTE AUTO 0.62 K/mm3 (0.16-1.47); MONOCYTES PERCENT AUTO 7 % (4-13); Mean Corpuscular HGB 34.7 pg (26.0-34.0); Mean Corpuscular HGB Conc 34.8 g/dL (31.5-36.5); Mean Corpuscular Volume 100 fL (80-100); Mean Platelet Volume 11.8 fL (9.1-12.4); NEUTROPHILS ABSOLUTE AUTO 7.04 K/mm3 (1.96-9.15); NEUTROPHILS PERCENT AUTO 77 % (41-73); Platelet Count 191 K/mm3 (150-400); RDW Coefficient Variation 11.9 % (11.7-14.2); RDW Standard Deviation 43.3 fL (35.1-46.3); Red Blood Cell Count 3.75 M/mm3 (3.80-5.20); White Blood Cell Count 9.11 K/mm3 (4.00-11.30)
[2023-09-12 14:17] LABS: Albumin/Globulin Ratio 1.2 (0.8-1.8); Bilirubin, Total 0.5 mg/dL (0.1-1.0); Calcium, Blood 8.9 mg/dL (8.5-10.1); Creatinine, Blood 1.6 mg/dL (0.40-1.00); Globulin, Blood 3.4 g/dL (2.2-4.0); Potassium, Blood 3.1 mmol/L (3.5-5.5); Total Protein, Blood 7.4 g/dL (6.4-8.2)
== END | disposition home or self-care (01) ==
LOC: LAB 14:01 → LAB SHORT 14:01
PROVIDERS: Physician Assistant
DX: R10.32 Left lower quadrant pain (principal); N39.0 Urinary tract infection, site not specified
CPT/HCPCS: 80053; 85025; 87077; 87086; 87186

== ENCOUNTER → 2023-09-17 | Outpatient (CLI) | payer OTHER | END | disposition home or self-care (01) | LOC: LAB 11:23 → LAB SHORT 11:23 | DX: E55.9 Vitamin D deficiency, unspecified (principal); N25.81 Secondary hyperparathyroidism of renal origin; E78.00 Pure hypercholesterolemia, unspecified; R76.9 Abnormal immunological finding in serum, unspecified; R94.5 Abnormal results of liver function studies; R94.6 Abnormal results of thyroid function studies ==

== ENCOUNTER → 2023-09-23 | Outpatient (CLI) | payer OTHER | END | disposition home or self-care (01) | LOC: LAB SHORT 13:34 → LAB 13:34 | DX: N39.0 Urinary tract infection, site not specified (principal) | CPT/HCPCS: 87077; 87086; 87186 ==

== ENCOUNTER 2023-11-15 10:44 | Day surgery (SDC) | payer OTHER ==
[~2023-11-15 10:44] MED LIST changes: +ASPIR 8181 M1 PO; +ATOR20 PO; +DILT180 PO; +Diflucan150 MG; +FLONASE ALLERG9.9 M2; +HYDCHL25 PO; +LOSARTAN-HCTZ1 EAC5 PO; +Lactated Ringer's 1,000 ML IV ONE; +POTCIT10; +PREG150 PO; +RIZATRIPTAN10 MG; +TRAZ50 PO
[2023-11-15] MEDS ORDERED: CeFAZolin Sodium 2,000 MG VIAL ONE (11:33)
[2023-11-15] MEDS ORDERED: NS 50 ML IV ONE (11:33)
[2023-11-15] MEDS ORDERED: Insulin Regular 100 UNIT/ML 10ML Vial ONE (11:36)
[2023-11-15 11:48] VITALS: BP 103/60
[2023-11-15] MEDS ORDERED: Lactated Ringer's 1,000 ML IV ONE (11:48)
--- NOTE | 2023-11-15 12:05 | NUR ---
11/15/23 1205 Jacqui Da Silva CASE POSTPONED BY DR DEAN DUE TO HIGH A1C AND TODAYS BLOOD SUGAR OF 265. PT ALSO HAS AN OPEN WOUND ON THE 3RD TOE FROM A FOOT INJURY [address] DEAN CONSULTED WITH PT.
== END 2023-11-15 12:14 | disposition home or self-care (01) ==
LOC: ORSCSDS 10:44
DX: M20.12 Hallux valgus (acquired), left foot (principal); Z53.9 Procedure and treatment not carried out, unspecified reason
CPT/HCPCS: 82947; J0690; J1815; J7120

== ENCOUNTER 2023-11-26 15:22 | Emergency (ER) | payer OTHER ==
[~2023-11-26] VITALS: Ht 160 cm; Wt 59.0 kg
[~2023-11-26 15:22] MED LIST changes: -Lactated Ringer's 1,000 ML IV ONE
[2023-11-26 15:58] LABS: BASOPHILS ABSOLUTE AUTO 0.06 K/mm3 (0.00-0.23); BASOPHILS PERCENT AUTO 1 % (0-2); EOSINOPHILS ABSOLUTE AUTO 0.04 K/mm3 (0.00-0.68); EOSINOPHILS PERCENT AUTO 1 % (0-6); Hematocrit 36.3 % (33.0-51.0); IMMATURE GRAN ABSOLUTE AUTO 0.05 K/mm3 (0.00-0.10); IMMATURE GRAN PERCENT AUTO 1 % (0-1); LYMPHOCYTES ABSOLUTE AUTO 2.14 K/mm3 (0.84-5.20); LYMPHOCYTES PERCENT AUTO 30 % (21-46); MONOCYTES ABSOLUTE AUTO 0.55 K/mm3 (0.16-1.47); MONOCYTES PERCENT AUTO 8 % (4-13); Mean Corpuscular HGB 34.9 pg (26.0-34.0); Mean Corpuscular HGB Conc 35.8 g/dL (31.5-36.5); Mean Corpuscular Volume 98 fL (80-100); Mean Platelet Volume 11.3 fL (9.1-12.4); NEUTROPHILS ABSOLUTE AUTO 4.31 K/mm3 (1.96-9.15); NEUTROPHILS PERCENT AUTO 60 % (41-73); Platelet Count 199 K/mm3 (150-400); RDW Coefficient Variation 11.9 % (11.7-14.2); RDW Standard Deviation 42.3 fL (35.1-46.3); Red Blood Cell Count 3.72 M/mm3 (3.80-5.20); White Blood Cell Count 7.15 K/mm3 (4.00-11.30)
[2023-11-26 16:17] LABS: Albumin, Blood 3.7 g/dL (3.4-5.0); Albumin/Globulin Ratio 1.1 (0.8-1.8); Bilirubin, Total 0.3 mg/dL (0.1-1.0); Bun/Creatinine Ratio 25.2 (12.0-20.0); Calcium, Blood 8.5 mg/dL (8.5-10.1); Creatinine, Blood 1.23 mg/dL (0.40-1.00); Globulin, Blood 3.4 g/dL (2.2-4.0); Potassium, Blood 3.5 mmol/L (3.5-5.5); Total Protein, Blood 7.1 g/dL (6.4-8.2)
[2023-11-26 19:47] VITALS: BP 136/86
[2023-11-26] MEDS ORDERED: ONDA4ODT MM (19:47)
== END 2023-11-26 19:47 | disposition home or self-care (01) ==
LOC: ER 15:22
PROVIDERS: Physician Assistant
DX: U07.1 COVID-19 (principal); E86.0 Dehydration; E10.22 Type 1 diabetes mellitus with diabetic chronic kidney disease; I12.9 Hypertensive chronic kidney disease with stage 1 through stage 4 chronic kidney disease, or unspecified chronic kidney disease; N18.30 Chronic kidney disease, stage 3 unspecified; Z79.4 Long term (current) use of insulin; Z79.82 Long term (current) use of aspirin; Z79.899 Other long term (current) drug therapy; Z91.040 Latex allergy status; Z91.09 Other allergy status, other than to drugs and biological substances; Z88.8 Allergy status to other drugs, medicaments and biological substances; Z88.5 Allergy status to narcotic agent; Z88.1 Allergy status to other antibiotic agents
CPT/HCPCS: 71046; 80053; 83690; 85025; 99283-25

== ENCOUNTER → 2023-12-06 | Outpatient (CLI) | payer OTHER ==
[2023-12-11 13:16] LABS: 6-ACETYLMORPHINE, URN, QUANT <10 ng/mL; CODEINE, URN, QUANT <20 ng/mL; HYDROCODONE, URN, QUANT <20 ng/mL; HYDROMORPHONE, URN, QUANT <20 ng/mL; MORPHINE, URN, QUANT <20 ng/mL; NORHYDROCODONE, URN, QUANT <20 ng/mL; NOROXYCODONE, URN, QUANT <20 ng/mL; NOROXYMORPHONE, URN, QUANT <20 ng/mL; OXYCODONE, URN, QUANT <20 ng/mL; OXYMORPHONE, URN, QUANT <20 ng/mL
== END ==
LOC: LAB 15:19 → LAB SHORT 15:19
PROVIDERS: Family Medicine
DX: Z51.81 Encounter for therapeutic drug level monitoring (principal); Z79.899 Other long term (current) drug therapy
CPT/HCPCS: G0480

== ENCOUNTER 2024-01-18 10:07 | Emergency (ER) | payer OTHER ==
[~2024-01-18] VITALS: Ht 160 cm; Wt 57.6 kg
[2024-01-18 10:42] VITALS: BP 121/95
[2024-01-18 11:12] LABS: BASOPHILS ABSOLUTE AUTO 0.06 K/mm3 (0.00-0.23); BASOPHILS PERCENT AUTO 1 % (0-2); EOSINOPHILS ABSOLUTE AUTO 0.11 K/mm3 (0.00-0.68); EOSINOPHILS PERCENT AUTO 1 % (0-6); Hemoglobin 13.9 g/dL (11.5-16.0); IMMATURE GRAN ABSOLUTE AUTO 0.01 K/mm3 (0.00-0.10); IMMATURE GRAN PERCENT AUTO 0 % (0-1); LYMPHOCYTES ABSOLUTE AUTO 1.42 K/mm3 (0.84-5.20); LYMPHOCYTES PERCENT AUTO 17 % (21-46); MONOCYTES ABSOLUTE AUTO 0.57 K/mm3 (0.16-1.47); MONOCYTES PERCENT AUTO 7 % (4-13); Mean Corpuscular HGB 34.8 pg (26.0-34.0); Mean Corpuscular HGB Conc 34.8 g/dL (31.5-36.5); Mean Corpuscular Volume 100 fL (80-100); Mean Platelet Volume 11.2 fL (9.1-12.4); NEUTROPHILS ABSOLUTE AUTO 6.12 K/mm3 (1.96-9.15); NEUTROPHILS PERCENT AUTO 74 % (41-73); Platelet Count 220 K/mm3 (150-400); RDW Coefficient Variation 11.7 % (11.7-14.2); RDW Standard Deviation 42.7 fL (35.1-46.3); White Blood Cell Count 8.29 K/mm3 (4.00-11.30)
[2024-01-18 11:31] LABS: Albumin, Blood 4.2 g/dL (3.4-5.0); Albumin/Globulin Ratio 1.1 (0.8-1.8); Bilirubin, Total 0.4 mg/dL (0.1-1.0); Bun/Creatinine Ratio 27.3 (12.0-20.0); Calcium, Blood 9.2 mg/dL (8.5-10.1); Creatinine, Blood 1.32 mg/dL (0.40-1.00); Globulin, Blood 3.7 g/dL (2.2-4.0); Potassium, Blood 2.9 mmol/L (3.5-5.5); Total Protein, Blood 7.9 g/dL (6.4-8.2)
[2024-01-18] MEDS ORDERED: Dexamethasone Sod Phos 10 MG/ML 1ML VIAL IV ONE (12:10)
[2024-01-18] MEDS ORDERED: NS 1,000 ML IV SCH (12:10)
[2024-01-18] MEDS ORDERED: Ketorolac Tromethamine 30mg Vial IV ONE (13:20)
== END 2024-01-18 14:30 | disposition home or self-care (01) ==
LOC: ER 10:07
PROVIDERS: Physician Assistant
DX: M96.843 Postprocedural seroma of a musculoskeletal structure following other procedure (principal); M54.2 Cervicalgia; R13.10 Dysphagia, unspecified; I12.9 Hypertensive chronic kidney disease with stage 1 through stage 4 chronic kidney disease, or unspecified chronic kidney disease; N18.30 Chronic kidney disease, stage 3 unspecified; E10.22 Type 1 diabetes mellitus with diabetic chronic kidney disease; G43.909 Migraine, unspecified, not intractable, without status migrainosus; Z79.51 Long term (current) use of inhaled steroids; Z79.82 Long term (current) use of aspirin; Z79.4 Long term (current) use of insulin; Z79.899 Other long term (current) drug therapy; Z91.040 Latex allergy status; Z88.1 Allergy status to other antibiotic agents; Z88.2 Allergy status to sulfonamides; Z88.8 Allergy status to other drugs, medicaments and biological substances
CPT/HCPCS: 70491; 80053; 85025; 96361; 96374; 96375; 99284-25; J1100; J1885; J7030; Q9967

== ENCOUNTER 2024-02-21 10:38 | Day surgery (SDC) | payer OTHER ==
[~2024-02-21 10:38] MED LIST changes: +Lactated Ringer's 1,000 ML IV ONE
--- NOTE | 2024-02-21 11:24 | NUR ---
02/21/24 Elisabet4 Henok Champion PER ANESTHESIA AND SURGEON, PT CASE CANCELLED D/T PT DRINKING MILK AT 0930 THIS MORNING. PER MD, PT WILL NEED TO BE RESCHEDULED FOR PROCEDURE.
== END 2024-02-21 11:23 | disposition home or self-care (01) ==
LOC: ORSCSDS 10:38
DX: M20.12 Hallux valgus (acquired), left foot (principal); Z53.9 Procedure and treatment not carried out, unspecified reason
CPT/HCPCS: J7120

== ENCOUNTER 2024-02-28 10:12 | Day surgery (SDC) | payer OTHER ==
[~2024-02-28] VITALS: Ht 160 cm; Wt 59.4 kg
[~2024-02-28 10:12] MED LIST changes: -Lactated Ringer's 1,000 ML IV ONE; +Lidocaine HCl 2% 10 ML SDA ONE; +Ropivacaine 0.5% HCL/PF 5 MG/ML 30ML Vial ONE
[2024-02-28] MEDS ORDERED: CeFAZolin Sodium 2,000 MG VIAL ONE (10:38)
[2024-02-28] MEDS ORDERED: NS 50 ML IV ONE (10:38)
[2024-02-28] MEDS ORDERED: Lactated Ringer's 1,000 ML IV ONE (11:30)
[2024-02-28] MEDS ORDERED: Dextrose 5% 500 ML IV ONE ×2 (11:57→11:58)
[2024-02-28] MEDS ORDERED: propofoL 20 ML IV ONE (12:03)
[2024-02-28] MEDS ORDERED: Dextrose 5% 250 ML IV ONE (12:05)
--- NOTE | 2024-02-28 12:32 | NUR ---
02/28/24 1232 Karina Aponte 30ML OF ROPIVACAINE 0.5% MIXED WITH 0.15MG OF EPI (1MG/ML) TO MAKE ROPIVACAINE 0.5% WITH EPI 1:200,000 FOR INJECTION AT THE OPSITE.
[2024-02-28] MEDS ORDERED: Ondansetron HCl 2 MG / ML 2ML Vial ONE (12:34)
[2024-02-28] MEDS ORDERED: EPINEPhrine HCl 1 MG/ML 1ML Amp XX ONE (12:39)
--- NOTE | 2024-02-28 13:17 | NUR ---
02/28/24 1317 Sherri Finn PT. DENIES ANY PAIN.
[2024-02-28 13:24] VITALS: BP 110/76
[2024-02-28] MEDS ORDERED: OxyCODONE HCL 5 MG TAB ONE (13:33)
== END 2024-02-28 13:48 | disposition home or self-care (01) ==
LOC: ORSCSDS 10:12
PROVIDERS: Podiatrist Foot & Ankle Surgery
PROC: 0QSP04Z Reposition Left Metatarsal with Internal Fixation Device, Open Approach (ICD-10-PCS; principal; 2024-02-28 12:00)
DX: M20.12 Hallux valgus (acquired), left foot (principal); E10.22 Type 1 diabetes mellitus with diabetic chronic kidney disease; I12.9 Hypertensive chronic kidney disease with stage 1 through stage 4 chronic kidney disease, or unspecified chronic kidney disease; N18.9 Chronic kidney disease, unspecified; Z79.4 Long term (current) use of insulin; E78.5 Hyperlipidemia, unspecified; F41.9 Anxiety disorder, unspecified; Z79.899 Other long term (current) drug therapy
CPT/HCPCS: 82947; A9270; C1713; C1769; J0171; J0690; J2001; J2003; J2405; J2704; J2795; J7060

== ENCOUNTER → 2024-03-23 | Outpatient (CLI) | payer OTHER ==
[~2024-03-23] MED LIST changes: -Lidocaine HCl 2% 10 ML SDA ONE; -Ropivacaine 0.5% HCL/PF 5 MG/ML 30ML Vial ONE
== END | disposition home or self-care (01) ==
LOC: LAB 14:16 → LAB SHORT 14:16
DX: R10.2 Pelvic and perineal pain (principal)
CPT/HCPCS: 87077; 87086; 87186

== ENCOUNTER → 2024-03-24 | Outpatient (CLI) | payer OTHER | LOC: LAB 17:48 → LAB SHORT 17:48 | DX: N30.01 Acute cystitis with hematuria (principal) | CPT/HCPCS: 87086 ==

== ENCOUNTER 2024-05-28 06:55 | Day surgery (SDC) | payer OTHER ==
[~2024-05-28] VITALS: Ht 160 cm; Wt 63.3 kg
[~2024-05-28 06:55] MED LIST changes: +Balanced Salt Epinephrine Irrigation Solution 500 mL IR SCH; +ESTRADIOL42.5 GM VAG; +INSULIN GLARGINE; +INSULIN LI100 UNIT/8; +K-TAB ER20 ME1; +Lidocaine HCl/Pf 1% 5 ML VIAL ONE; +Lidocaine HCl/Pf 1% 5 ML VIAL XX SCH; +MAXALT10 MG; +ONDA4; +PHENYLEPHRINE\\TROPICAMIDE\\TETRACAINE OPHTHALMIC DILATING SOLN LEFTEYE PRN; +Povidone-Iodine 450 DROP/30 ML Solution LEFTEYE SCH; +Povidone-Iodine 450 DROP/30 ML Solution ONE; +Tetracaine HCl/Pf 0.5% Opth Soln 4 ml ONE; +Triamcinolone Inj Susp 40 MG / ML 1ML Vial INJ SCH; +Triamcinolone Inj Susp 40 MG / ML 1ML Vial ONE
[2024-05-28] MEDS ORDERED: Diazepam 2 MG Tab ONE (07:12)
[2024-05-28] MEDS ORDERED: Diazepam 5 MG Tab ONE ×2 (07:12→07:57)
--- NOTE | 2024-05-28 07:40 | NUR ---
05/28/24 0740 Xena, Cecilia VALIUM 7MG PO X 1 GIVEN AT 0739. PT REPORTS ANXIETY OF 9/10 PRIOR TO ADMINISTRATION.
[2024-05-28] MEDS ORDERED: propofoL 20 ML IV ONE (08:32)
[2024-05-28] MEDS ORDERED: Moxifloxacin HCL 0.5 MG/0.1 ML 0.4MLSYR LEFTEYE ONE (08:37)
[2024-05-28] MEDS ORDERED: Lactated Ringer's 1,000 ML IV ONE (08:48)
[2024-05-28 09:04] VITALS: BP 113/65
== END 2024-05-28 09:13 | disposition home or self-care (01) ==
LOC: ORSCSDS 06:55
PROVIDERS: Ophthalmology
PROC: 08RK3JZ Replacement of Left Lens with Synthetic Substitute, Percutaneous Approach (ICD-10-PCS; principal; 2024-05-28 08:30)
DX: E10.36 Type 1 diabetes mellitus with diabetic cataract (principal); H25.813 Combined forms of age-related cataract, bilateral; E10.22 Type 1 diabetes mellitus with diabetic chronic kidney disease; I12.9 Hypertensive chronic kidney disease with stage 1 through stage 4 chronic kidney disease, or unspecified chronic kidney disease; N18.2 Chronic kidney disease, stage 2 (mild); F41.9 Anxiety disorder, unspecified; F32.A Depression, unspecified; E78.5 Hyperlipidemia, unspecified; Z79.4 Long term (current) use of insulin; Z79.899 Other long term (current) drug therapy
CPT/HCPCS: 82947; A9270; J2003; J2704; J3301; J7120; V2632

== ENCOUNTER 2024-06-26 10:50 | Day surgery (SDC) | payer OTHER ==
[~2024-06-26] VITALS: Ht 160 cm; Wt 63.4 kg
[~2024-06-26 10:50] MED LIST changes: -Balanced Salt Epinephrine Irrigation Solution 500 mL IR SCH; +Lactated Ringer's 1,000 ML IV ONE; -Lidocaine HCl/Pf 1% 5 ML VIAL ONE; -Lidocaine HCl/Pf 1% 5 ML VIAL XX SCH; -PHENYLEPHRINE\\TROPICAMIDE\\TETRACAINE OPHTHALMIC DILATING SOLN LEFTEYE PRN; -Povidone-Iodine 450 DROP/30 ML Solution LEFTEYE SCH; -Povidone-Iodine 450 DROP/30 ML Solution ONE; -Tetracaine HCl/Pf 0.5% Opth Soln 4 ml ONE; -Triamcinolone Inj Susp 40 MG / ML 1ML Vial INJ SCH; -Triamcinolone Inj Susp 40 MG / ML 1ML Vial ONE
[2024-06-26] MEDS ORDERED: CeFAZolin Sodium 2,000 MG VIAL ONE (11:00)
[2024-06-26] MEDS ORDERED: Lactated Ringer's 1,000 ML IV ONE (11:35)
[2024-06-26] MEDS ORDERED: EPINEPhrine HCl 1 MG/ML 1ML Amp ONE (11:43)
[2024-06-26] MEDS ORDERED: Lidocaine HCl 2% 10 ML SDA ONE (11:43)
--- NOTE | 2024-06-26 11:58 | NUR ---
06/26/24 1158 Palmira Russell ON ARRIVAL TO ROOM PATIENT REPORTED HER PERSONAL GLUCOSE MONITOR TO BE READING 128. WITHIN A FEW MINUTES, WHILE VITALS WERE BEING TAKEN PATIENT'S MONITOR WENT OFF AND ALERTED THAT HER BLOOD SUGAR WAS CURRENTLY 99. PATIENT REPORTED SHE DROPS QUICKLY. A FEW MINUTES LATER IV WAS STARTED AND A BLOOD SUGAR WAS TESTED WITH SOME BLOOD FROM IV START USING ORSC MONITOR. PER ORSC MONITOR BLOOD SUGAR WAS 90 AT 1133. RN ALERTED DR MILNER OF THE ABOVE REGARDING BLOOD SUGAR AND THAT PATIENT REPORTED SHE DROPS QUICKLY AND SHE IS FEELING LIKE HER BLOOD SUGAR IS DROPPING. DR MILNER PROVIDED ORDER FOR D5 1/2 NS 200 ML PUSH IV THEN LET DRIP TKO OR 1/3 AMPULE OF D50 WHICHEVER WAS AVAILABLE. DR MILNER CHANGED ORDER TO LACTATED RINGERS WITH 5% DEXTROSE. PER DR MILNER GIVE 200 ML PUSH IV OF LACTATED RINGERS WITH 5% DEXTROSE THEN LEAVE RATE TKO. PER DR MILNER RECHECK BLOOD SUGAR BEFORE CASE. 1146: LACTATED RINGER'S WITH 5% DEXTROSE STARTED IV OPEN PER ORDER FROM DR MILNER. 1155: 200 ML IV LR WITH 5% DEXTROSE COMPLETE AND PATIENT REPORTED FEELING BETTER. RATE CHANGED TO TKO.
[2024-06-26] MEDS ORDERED: KERENDIA10 MG PO (12:03)
[2024-06-26] MEDS ORDERED: ESZO2 PO (12:05)
[2024-06-26] MEDS ORDERED: VITAMIN D (12:06)
[2024-06-26] MEDS ORDERED: propofoL 20 ML IV ONE (13:05)
[2024-06-26] MEDS ORDERED: Bupivacaine 0.5% W/EPI 1:200000 SDV 10ML INJ ONE (13:24)
[2024-06-26] MEDS ORDERED: Ondansetron HCl 2 MG / ML 2ML Vial ONE (13:25)
--- NOTE | 2024-06-26 13:53 | NUR ---
06/26/24 1353 NIXON MONROE @2741 BG 127, VERBAL PER DR MILNER. 1352 PT BLOOD GLUCOSE MONITOR READS 204.
[2024-06-26 14:12] VITALS: BP 102/65
--- NOTE | 2024-06-26 14:14 | NUR ---
06/26/24 1414 NIXON MONROE PT RESTING, UP IN CHAIR, TOLERATING FOOD AND LIQUIDS W/O CO NAUSEA. MOTHER, AND STEP DAD AT BEDSIDE.
[2024-06-26] MEDS ORDERED: HYDROcodone 5-APAP 325 TAB ONE (14:53)
== END 2024-06-26 15:14 | disposition home or self-care (01) ==
LOC: ORSCSDS 10:50
PROVIDERS: Podiatrist Foot & Ankle Surgery
PROC: 0QP104Z Removal of Internal Fixation Device from Sacrum, Open Approach (ICD-10-PCS; principal; 2024-06-26 12:30)
DX: T84.84XA Pain due to internal orthopedic prosthetic devices, implants and grafts, initial encounter (principal); M20.12 Hallux valgus (acquired), left foot; E10.22 Type 1 diabetes mellitus with diabetic chronic kidney disease; I12.9 Hypertensive chronic kidney disease with stage 1 through stage 4 chronic kidney disease, or unspecified chronic kidney disease; N18.9 Chronic kidney disease, unspecified; Z79.4 Long term (current) use of insulin; E78.5 Hyperlipidemia, unspecified; F41.9 Anxiety disorder, unspecified; Z79.899 Other long term (current) drug therapy; Z79.82 Long term (current) use of aspirin
CPT/HCPCS: 82947; A9270; J0171; J0690; J2003; J2405; J2704; J7060; J7120

== ENCOUNTER 2024-08-24 15:07 | Emergency (ER) | payer OTHER ==
[~2024-08-24] VITALS: Ht 160 cm; Wt 63.5 kg
[~2024-08-24 15:07] MED LIST changes: +ESZO2 PO; +KERENDIA10 MG PO; -Lactated Ringer's 1,000 ML IV ONE; +VITAMIN D
[2024-08-24 15:32] VITALS: BP 144/114
[2024-08-24] MEDS ORDERED: Ketorolac Tromethamine 30mg Vial IM ONE (17:25)
[2024-08-24] MEDS ORDERED: Cyclobenzaprine HCl 10 MG Tab PO ONE (17:40)
[2024-08-24] MEDS ORDERED: CYCL10 PO (17:43)
== END 2024-08-24 17:49 | disposition home or self-care (01) ==
LOC: ER 15:07
DX: G58.9 Mononeuropathy, unspecified (principal); I12.9 Hypertensive chronic kidney disease with stage 1 through stage 4 chronic kidney disease, or unspecified chronic kidney disease; E10.22 Type 1 diabetes mellitus with diabetic chronic kidney disease; N18.30 Chronic kidney disease, stage 3 unspecified; Z88.1 Allergy status to other antibiotic agents; Z91.040 Latex allergy status; Z88.2 Allergy status to sulfonamides; Z88.8 Allergy status to other drugs, medicaments and biological substances; Z91.048 Other nonmedicinal substance allergy status; Z79.4 Long term (current) use of insulin; Z79.899 Other long term (current) drug therapy
CPT/HCPCS: 72040; 73030; 96372; 99283-25; A9270; J1885

== ENCOUNTER 2024-11-17 08:13 | Day surgery (SDC) | payer OTHER ==
[~2024-11-17] VITALS: Ht 160 cm; Wt 67.1 kg
[~2024-11-17 08:13] MED LIST changes: +CYCL10 PO; +Minipress1 MG; +ZOLP5
[2024-11-17] MEDS ORDERED: Tranexamic Acid 100 ML IV ONE (08:20)
[2024-11-17] MEDS ORDERED: CeFAZolin Sodium 2,000 MG VIAL ONE (08:20)
[2024-11-17] MEDS ORDERED: Estrace Vagin42.5 GM (08:36)
--- NOTE | 2024-11-17 09:36 | NUR ---
11/17/24 0936 Cecilia Mccallum POVIDONE IODINE 10% SKIN TEST PLACED AT 0904 ON RFA. SITE RECHECKED SEVERAL TIMES AND REMAINS CLEAR. PT DENIES ANY ABNORMAL SYMPTOMS AT SITE. DENIES ITCHING, BURNING, OR ANY OTHER COMPLAINTS TO THE AREA.
[2024-11-17] MEDS ORDERED: Bupivacaine 0.5% HCl 5 MG/ML 30MLVIAL ONE (09:38)
[2024-11-17] MEDS ORDERED: Midazolam HCl 1MG / ML 2ML Vial ONE (09:38)
[2024-11-17] MEDS ORDERED: Tetracaine HCl 1% 10MG/ML 2ML Amp ONE (09:42)
[2024-11-17] MEDS ORDERED: Midazolam HCL 1 MG/ML 5MLVIAL ONE (09:42)
[2024-11-17] MEDS ORDERED: HYDROmorphone HCl/Pf 1MG SYR ONE (10:12)
[2024-11-17] MEDS ORDERED: Ondansetron HCl 2 MG / ML 2ML Vial ONE ×2 (10:22→12:19)
[2024-11-17] MEDS ORDERED: Dexamethasone Sod Phos 10 MG/ML 1ML VIAL ONE (10:22)
[2024-11-17] MEDS ORDERED: Phenylephrine HCl 100 MCG/ML-NS 10MLSYR (1MG/10ML) ONE (10:22)
--- NOTE | 2024-11-17 10:36 | NUR ---
11/17/[address] OK TO USE CHLORHEXIDINE PREP EVEN THOUGH PT HAS RASH ALLERGY TO IT. PT STATES SHE IS OK WITTH THE PREP BEING USED WELL. TXA IGM IV, STATED IN OR AT 1020 BY JOAQUIN YAÑEZ.
[2024-11-17] MEDS ORDERED: Phenylephrine HCl 10mg/ml 1 ml Vial ONE (11:12)
[2024-11-17] MEDS ORDERED: Ketorolac Tromethamine 30mg Vial ONE (11:48)
[2024-11-17] MEDS ORDERED: Sugammadex Sodium 200 MG/2ML SDV (100 MG/ML) ONE (11:49)
--- NOTE | 2024-11-17 12:04 | NUR ---
11/17/24 1204 KATRINA SHERIDAN PT C/O NAUSEA. DENIES PAIN.
[2024-11-17 12:27] VITALS: BP 141/80
--- NOTE | 2024-11-17 12:34 | NUR ---
11/17/24 1234 KATRINA SHERIDAN WAS GIVEN FOR NAUSEA. STATES GETTING BETTER
== END 2024-11-17 13:32 | disposition home or self-care (01) ==
LOC: ORSCSDS 08:13
PROVIDERS: Orthopaedic Surgery Sports Medicine
PROC: 0RNK4ZZ Release Left Shoulder Joint, Percutaneous Endoscopic Approach (ICD-10-PCS; principal; 2024-11-17 09:45)
PROC: 0LM24ZZ Reattachment of Left Shoulder Tendon, Percutaneous Endoscopic Approach (ICD-10-PCS; principal; 2024-11-17 09:45)
DX: M75.122 Complete rotator cuff tear or rupture of left shoulder, not specified as traumatic (principal); M75.42 Impingement syndrome of left shoulder; E10.22 Type 1 diabetes mellitus with diabetic chronic kidney disease; I12.9 Hypertensive chronic kidney disease with stage 1 through stage 4 chronic kidney disease, or unspecified chronic kidney disease; N18.30 Chronic kidney disease, stage 3 unspecified; Z79.85 Long-term (current) use of injectable non-insulin antidiabetic drugs; Z79.899 Other long term (current) drug therapy; Z86.73 Personal history of transient ischemic attack (TIA), and cerebral infarction without residual deficits
CPT/HCPCS: 82947; C1713; J0165; J0690; J1100; J1171; J1885; J2250; J2371; J2405; J2704; J7120

== ENCOUNTER 2024-11-18 20:53 | Emergency (ER) | payer OTHER ==
[~2024-11-18] VITALS: Ht 162.6 cm; Wt 72.6 kg
[~2024-11-18 20:53] MED LIST changes: +Estrace Vagin42.5 GM
[2024-11-18 21:02] VITALS: BP 161/90
[2024-11-18 21:18] LABS: BASOPHILS ABSOLUTE AUTO 0.02 K/mm3 (0.00-0.23); BASOPHILS PERCENT AUTO 0 % (0-2); EOSINOPHILS ABSOLUTE AUTO 0.01 K/mm3 (0.00-0.68); EOSINOPHILS PERCENT AUTO 0 % (0-6); Hematocrit 36.1 % (33.0-51.0); Hemoglobin 12.3 g/dL (11.5-16.0); IMMATURE GRAN ABSOLUTE AUTO 0.03 K/mm3 (0.00-0.10); IMMATURE GRAN PERCENT AUTO 0 % (0-1); LYMPHOCYTES ABSOLUTE AUTO 1.40 K/mm3 (0.84-5.20); LYMPHOCYTES PERCENT AUTO 16 % (21-46); MONOCYTES ABSOLUTE AUTO 0.70 K/mm3 (0.16-1.47); MONOCYTES PERCENT AUTO 8 % (4-13); Mean Corpuscular HGB Conc 34.1 g/dL (31.5-36.5); Mean Corpuscular Volume 103 fL (80-100); NEUTROPHILS ABSOLUTE AUTO 6.87 K/mm3 (1.96-9.15); NEUTROPHILS PERCENT AUTO 76 % (41-73); NRBC ABSOLUTE 0.00 K/mm3 (0.00-0.02); NRBC Auto 0.0 /100 WBC (0.0-0.2); Platelet Count 174 K/mm3 (150-400); RDW Coefficient Variation 12.8 % (11.7-14.2); RDW Standard Deviation 47.7 fL (35.1-46.3); pH Blood Venous 7.41 (7.34-7.37)
[2024-11-18 21:48] LABS: Alanine Aminotransfer (ALT/SGP 39.0 U/L (12-78); Albumin, Blood 4.2 g/dL (3.4-5.0); Albumin/Globulin Ratio 1.2 (0.8-1.8); Anion Gap 10.0 mmol/L (3-11); Aspartate Aminotrans (AST/SGOT 45.0 U/L (12-37); Bilirubin, Total 0.2 mg/dL (0.1-1.0); Blood Urea Nitrogen 24.0 mg/dL (8-24); CO2, Blood 27.0 mmol/L (21-32); Calcium, Blood 8.5 mg/dL (8.5-10.1); Chloride, Blood 104.0 mmol/L (98-108); Creatinine, Blood 1.19 mg/dL (0.40-1.00); Globulin, Blood 3.6 g/dL (2.2-4.0); Glucose, Blood 180.0 mg/dL (70-99); Potassium, Blood 3.7 mmol/L (3.5-5.5); Sodium, Blood 137.0 mmol/L (136-145); Total Protein, Blood 7.8 g/dL (6.4-8.2)
[2024-11-18] MEDS ORDERED: Ondansetron HCl 2 MG / ML 2ML Vial IV ONE (23:15)
[2024-11-18] MEDS ORDERED: Morphine Sulfate 4 MG/1 ML Injection IV ONE (23:15)
[2024-11-18] MEDS ORDERED: RX Prepack 6 Tabs Oxycodone 5mg UD ONE (23:40)
== END 2024-11-18 23:50 | disposition home or self-care (01) ==
LOC: ER 20:53
PROVIDERS: Student in an Organized Health Care Education/Training Program
DX: G89.18 Other acute postprocedural pain (principal); M25.512 Pain in left shoulder; E10.65 Type 1 diabetes mellitus with hyperglycemia; E10.22 Type 1 diabetes mellitus with diabetic chronic kidney disease; I12.9 Hypertensive chronic kidney disease with stage 1 through stage 4 chronic kidney disease, or unspecified chronic kidney disease; N18.30 Chronic kidney disease, stage 3 unspecified; G43.909 Migraine, unspecified, not intractable, without status migrainosus; Z88.1 Allergy status to other antibiotic agents; Z88.2 Allergy status to sulfonamides; Z88.5 Allergy status to narcotic agent; Z88.8 Allergy status to other drugs, medicaments and biological substances; Z91.040 Latex allergy status; Z91.048 Other nonmedicinal substance allergy status; Z79.4 Long term (current) use of insulin; Z79.899 Other long term (current) drug therapy
CPT/HCPCS: 80053; 82010; 82803; 85025; 96374; 96375; 99283-25; A9270; J2270; J2405

== ENCOUNTER → 2024-12-01 | Outpatient (CLI) | payer OTHER | LOC: LAB SHORT 17:25 → LAB 17:25 | PROVIDERS: Obstetrics & Gynecology | DX: Z01.411 Encounter for gynecological examination (general) (routine) with abnormal findings (principal) | CPT/HCPCS: 87624; G0123 ==

== ENCOUNTER 2024-12-06 17:44 | Observation (INO) | payer OTHER ==
[~2024-12-06] VITALS: Ht 160 cm; Wt 59.0 kg
[2024-12-06] MEDS ORDERED: Ondansetron HCl 2 MG / ML 2ML Vial IV ONE ×2 (18:30→19:40)
[2024-12-06 18:40] LABS: BASOPHILS ABSOLUTE AUTO 0.03 K/mm3 (0.00-0.23); BASOPHILS PERCENT AUTO 1 % (0-2); EOSINOPHILS ABSOLUTE AUTO 0.04 K/mm3 (0.00-0.68); EOSINOPHILS PERCENT AUTO 1 % (0-6); Hematocrit 38.3 % (33.0-51.0); Hemoglobin 13.5 g/dL (11.5-16.0); IMMATURE GRAN ABSOLUTE AUTO 0.01 K/mm3 (0.00-0.10); IMMATURE GRAN PERCENT AUTO 0 % (0-1); LYMPHOCYTES ABSOLUTE AUTO 1.51 K/mm3 (0.84-5.20); LYMPHOCYTES PERCENT AUTO 28 % (21-46); MONOCYTES ABSOLUTE AUTO 0.53 K/mm3 (0.16-1.47); MONOCYTES PERCENT AUTO 10 % (4-13); Mean Corpuscular HGB Conc 35.2 g/dL (31.5-36.5); Mean Corpuscular Volume 99 fL (80-100); NEUTROPHILS ABSOLUTE AUTO 3.20 K/mm3 (1.96-9.15); NEUTROPHILS PERCENT AUTO 60 % (41-73); NRBC ABSOLUTE 0.00 K/mm3 (0.00-0.02); NRBC Auto 0.0 /100 WBC (0.0-0.2); Platelet Count 248 K/mm3 (150-400); RDW Coefficient Variation 12.9 % (11.7-14.2); RDW Standard Deviation 46.5 fL (35.1-46.3)
[2024-12-06 18:54] LABS: Alanine Aminotransfer (ALT/SGP 27.0 U/L (12-78); Albumin, Blood 3.8 g/dL (3.4-5.0); Albumin/Globulin Ratio 1.1 (0.8-1.8); Anion Gap 14.0 mmol/L (3-11); Aspartate Aminotrans (AST/SGOT 21.0 U/L (12-37); Bilirubin, Total 0.6 mg/dL (0.1-1.0); Blood Urea Nitrogen 14.0 mg/dL (8-24); CO2, Blood 25.0 mmol/L (21-32); Calcium, Blood 9.2 mg/dL (8.5-10.1); Chloride, Blood 99.0 mmol/L (98-108); Creatinine, Blood 0.81 mg/dL (0.40-1.00); Globulin, Blood 3.5 g/dL (2.2-4.0); Glucose, Blood 223.0 mg/dL (70-99); Potassium, Blood 3.7 mmol/L (3.5-5.5); Sodium, Blood 134.0 mmol/L (136-145); Total Protein, Blood 7.3 g/dL (6.4-8.2)
[2024-12-06 20:03] LABS: Source, Urine Clean Catch
[2024-12-06 20:05] LABS: Bilirubin, Urine Neg (Neg); Glucose Qualitative, Urine 3+ (Neg); Ketones, Urine 4+ (Neg); Leukocyte Esterase, Urine Neg (Neg); Protein, Urine 3+ (Neg); Specific Gravity, Urine 1.020 (1.003-1.022); Urobilinogen, Urine NORM (Normal)
[2024-12-06 20:12] LABS: Color, Urine Pale Yellow (P-Yellow); Red Blood Cells, Urine 0-2 /hpf (0-2); White Blood Cells, Urine 0-2 /hpf (0-5)
[2024-12-06] MEDS ORDERED: Prochlorperazine Edisylate 10 mg Vial IV ONE (20:25)
[2024-12-06] MEDS ORDERED: NS 1,000 ML IV SCH (20:25)
[2024-12-06] MEDS ORDERED: DiphenhydrAMINE HCl 50 MG/ML 1ML Vial IV ONE (20:25)
[2024-12-06] MEDS ORDERED: Ondansetron HCl 2 MG / ML 2ML Vial IV PRN (23:45)
[2024-12-06] MEDS ORDERED: Prochlorperazine Edisylate 10 mg Vial IV PRN (23:45)
[2024-12-06 23:51] LABS: Alanine Aminotransfer (ALT/SGP 24.0 U/L (12-78); Albumin, Blood 3.4 g/dL (3.4-5.0); Albumin/Globulin Ratio 1.1 (0.8-1.8); Anion Gap 10.0 mmol/L (3-11); Aspartate Aminotrans (AST/SGOT 18.0 U/L (12-37); Bilirubin, Total 0.4 mg/dL (0.1-1.0); Blood Urea Nitrogen 11.0 mg/dL (8-24); CO2, Blood 25.0 mmol/L (21-32); Calcium, Blood 8.4 mg/dL (8.5-10.1); Chloride, Blood 104.0 mmol/L (98-108); Creatinine, Blood 0.72 mg/dL (0.40-1.00); Globulin, Blood 3.1 g/dL (2.2-4.0); Glucose, Blood 222.0 mg/dL (70-99); Potassium, Blood 4.1 mmol/L (3.5-5.5); Sodium, Blood 135.0 mmol/L (136-145); Total Protein, Blood 6.5 g/dL (6.4-8.2)
[2024-12-07 03:19] VITALS: BP 155/71
[2024-12-07 05:50] LABS: BASOPHILS ABSOLUTE AUTO 0.06 K/mm3 (0.00-0.23); BASOPHILS PERCENT AUTO 1 % (0-2); EOSINOPHILS ABSOLUTE AUTO 0.04 K/mm3 (0.00-0.68); EOSINOPHILS PERCENT AUTO 1 % (0-6); Hematocrit 36.3 % (33.0-51.0); Hemoglobin 12.5 g/dL (11.5-16.0); IMMATURE GRAN ABSOLUTE AUTO 0.02 K/mm3 (0.00-0.10); IMMATURE GRAN PERCENT AUTO 0 % (0-1); LYMPHOCYTES ABSOLUTE AUTO 1.62 K/mm3 (0.84-5.20); LYMPHOCYTES PERCENT AUTO 26 % (21-46); MONOCYTES ABSOLUTE AUTO 0.47 K/mm3 (0.16-1.47); MONOCYTES PERCENT AUTO 7 % (4-13); Mean Corpuscular HGB Conc 34.4 g/dL (31.5-36.5); Mean Corpuscular Volume 103 fL (80-100); NEUTROPHILS ABSOLUTE AUTO 4.12 K/mm3 (1.96-9.15); NEUTROPHILS PERCENT AUTO 65 % (41-73); NRBC ABSOLUTE 0.00 K/mm3 (0.00-0.02); NRBC Auto 0.0 /100 WBC (0.0-0.2); Platelet Count 223 K/mm3 (150-400); RDW Coefficient Variation 13.1 % (11.7-14.2); RDW Standard Deviation 49.8 fL (35.1-46.3)
[2024-12-07 06:10] LABS: Alanine Aminotransfer (ALT/SGP 24.0 U/L (12-78); Albumin, Blood 3.4 g/dL (3.4-5.0); Albumin/Globulin Ratio 1.0 (0.8-1.8); Anion Gap 14.0 mmol/L (3-11); Aspartate Aminotrans (AST/SGOT 16.0 U/L (12-37); Bilirubin, Total 0.5 mg/dL (0.1-1.0); Blood Urea Nitrogen 10.0 mg/dL (8-24); CO2, Blood 20.0 mmol/L (21-32); Calcium, Blood 8.3 mg/dL (8.5-10.1); Chloride, Blood 104.0 mmol/L (98-108); Creatinine, Blood 0.74 mg/dL (0.40-1.00); Globulin, Blood 3.3 g/dL (2.2-4.0); Glucose, Blood 234.0 mg/dL (70-99); Potassium, Blood 4.2 mmol/L (3.5-5.5); Sodium, Blood 134.0 mmol/L (136-145); Total Protein, Blood 6.7 g/dL (6.4-8.2)
--- NOTE | 2024-12-07 06:49 | NUR ---
SUMMARY RECVD FROM ED @ 3:15AM. ALERT, ORIENTED & INDEPENDENT. KNOWN CHRONIC PAIN ON L SHOULDER DUE TO TORN ROTATOR CUFF. DIABETIC, CC OF N/V , NO FOOD APPETITE FOR THE LAST 3 DAYS. ABLE TO SWALLOW PILLS. RESTARTED ON LR IV. CBG DONE 235, DEXCOM READS 240 MG/DL. NO CONCERN AT NIGHT.
[2024-12-07 07:23] VITALS: BP 147/71
[2024-12-07] MEDS ORDERED: Insulin Glargine-Yfgn 100 Unit/mL 3 ML SYR SC SCH (09:00)
[2024-12-07] MEDS ORDERED: Enoxaparin 40 MG/0.4 ML SYR SC SCH (09:00)
--- NOTE | 2024-12-07 12:07 | NUR ---
PT REPORTS ITCHING ON BACK AND LEGS AND IS REQUESTING BENADRYL.NO VISIBLE RASH NOTED. SPOKE WITH DR LOW WHO WILL PLACE ORDERS. PT INSTRUCTED TO CALL IMMEDIATELY IF ANY SOB,TIGHTENING OF THROAT OR CHANGE IN CONDITION
[2024-12-07] MEDS ORDERED: Rizatriptan Benzoate 10 MG / TAB SoluTab SL PRN (12:35)
[2024-12-07 14:17] LABS: Anion Gap 10.0 mmol/L (3-11); Blood Urea Nitrogen 9.0 mg/dL (8-24); CO2, Blood 25.0 mmol/L (21-32); Calcium, Blood 8.7 mg/dL (8.5-10.1); Chloride, Blood 104.0 mmol/L (98-108); Creatinine, Blood 0.71 mg/dL (0.40-1.00); Glucose, Blood 156.0 mg/dL (70-99); Potassium, Blood 3.8 mmol/L (3.5-5.5); Sodium, Blood 135.0 mmol/L (136-145)
[2024-12-07 15:30] VITALS: BP 163/79
[2024-12-07] MEDS ORDERED: Insulin Regular 100 UNIT/ML 10ML Vial SC SCH ×2 (16:30)
--- NOTE | 2024-12-07 17:49 | NUR ---
SHIFT SUMMARY LR INFUSED AND COMPLETED THIS SHIFT. PT CONT TO HAVE C/O NAUSEA THAT MEDICATED PER EMAR. PT TOLERATED BREAKFAST WELL, MINIMAL AT LUNCH, AND MINIMAL AT DINNER. ENSURE OFFERED AND PT WAS AGREEABLE. BLOOD GLUCOSE REMAINS IN THE 200'S. NO OTHER ACUTE CHANGES. CALL LIGHT WITHIN REACH AND PT ABLE TO MAKE NEEDS KNOWN.
[2024-12-07 19:56] VITALS: BP 143/77
[2024-12-08] MEDS ORDERED: Fluticasone 0.05% Nasal Spray ONE (00:35)
[2024-12-08 04:15] VITALS: BP 140/72
[2024-12-08 05:52] LABS: Anion Gap 4.0 mmol/L (3-11); Blood Urea Nitrogen 9.0 mg/dL (8-24); CO2, Blood 28.0 mmol/L (21-32); Calcium, Blood 8.2 mg/dL (8.5-10.1); Chloride, Blood 107.0 mmol/L (98-108); Creatinine, Blood 0.8 mg/dL (0.40-1.00); Glucose, Blood 197.0 mg/dL (70-99); Potassium, Blood 4.2 mmol/L (3.5-5.5); Sodium, Blood 135.0 mmol/L (136-145)
--- NOTE | 2024-12-08 06:32 | NUR ---
SUMMARY IND AND SEEN WALKING AROUND ROOM OFTEN. UNSURE IF RESTLESS BUT HARDLY CATCHES SLEEP, HAD ITCHING ALLOVER BODY WHOLE DAY UNRESOLVED BY DIPHENHYDRAMINE. CONFERRED W/ DR. NESBITT ABT RESUMING HER PRAZOSIN 22MG OD HS BUT FEELS THAT IS TOO HIGH BUT PT CLAIMS HAVING IT FOR 5MOS ALREADY. DR AGREED TO RESUME HER AMBIEN TOO BUT FOR ONLY 5MG OD HS. SEEN AWAKE @ 12MN STILL HAS ITCHINESS. NOW W/ STUFFY NOSE BREATHING DISCOMFORT AND ASKS FOR FLONASE. OFFERED SHOWER AND LINEN CHANGE BUT FELT ITS TOO LATE FOR THAT. DR ELIZONDO AGREE TRY HYDROXYZINE FOR SINGLE DOSE. AT 4AM PT STILL AWAKE, CLAIM THAT SHE IS STILL ITCHY, MIGUEL CALLED DR ELIZONDO. LEFT UNDISTURBED FOR OPTIMAL REST AND REASSESS IN AM. TO REORDER ANOTHER DOSE OF ATARAX AND ALSO GAVE BENADRYL.
[2024-12-08 07:33] VITALS: BP 134/68
[2024-12-08] MEDS ORDERED: Fluticasone 0.05% Nasal Spray SCH (09:00)
[2024-12-08] MEDS ORDERED: Diltiazem HCl 180 MG Cap.CD PO SCH (09:00)
--- NOTE | 2024-12-08 16:12 | NUR ---
DISCHARGE NOTE PT D/C HOME AT 1000. PT PROVIDED W/ VERBAL AND WRITTEN INSTRUCTIONS AND REPORTED UNDERSTANDING. PT A&OX4, VSS, AMB IND, TOLERATING PO, VOIDING, AND DENIED PAIN. BELONGINGS WERE RETURNED AND PT AMB OUT IND W/ FRIEND.
== END 2024-12-08 10:17 | disposition home or self-care (01) ==
LOC: ER 17:44 → ERHOLD 17:45 → MEDS 17:45
PROVIDERS: Emergency Medicine; Family Medicine; Student in an Organized Health Care Education/Training Program; ADMIT Student in an Organized Health Care Education/Training Program
DX: R11.2 Nausea with vomiting, unspecified (principal); E10.9 Type 1 diabetes mellitus without complications; I10 Essential (primary) hypertension; G47.00 Insomnia, unspecified; E87.1 Hypo-osmolality and hyponatremia; Z88.5 Allergy status to narcotic agent; Z88.1 Allergy status to other antibiotic agents; Z91.040 Latex allergy status; Z88.2 Allergy status to sulfonamides; Z91.048 Other nonmedicinal substance allergy status; Z79.4 Long term (current) use of insulin; Z79.899 Other long term (current) drug therapy
CPT/HCPCS: 36415; 71046; 73030; 73620; 80048; 80053; 81001; 82010; 82947; 83036; 83690; 83735; 84703; 85025; 93005; 93010; 96372; 96374; 96375; 96376; 99285-25; A9270; G0378; J0780; J1200; J1650; J1815; J2405; J7030; J7120

== ENCOUNTER 2024-12-21 18:16 | Inpatient (IN) | payer OTHER ==
[~2024-12-21] VITALS: Ht 160 cm; Wt 71.5 kg
[2024-12-21] VITALS (9 sets, daily range): BP systolic 110–176; BP diastolic 63–77
[~2024-12-21 18:16] MED LIST changes: -ZOLP5; +ZOLP5 PO
[2024-12-21] MEDS ORDERED: INSULANI SC (18:44)
[2024-12-21 18:57] LABS: pH Blood Venous 6.98 (7.34-7.37)
[2024-12-21] MEDS ORDERED: HUMALOG KW100 UNIT/1 SC (19:04)
[2024-12-21 19:06] LABS: Source, Urine Clean Catch
[2024-12-21 19:08] LABS: Bilirubin, Urine Neg (Neg); Glucose Qualitative, Urine 4+ (Neg); Ketones, Urine 4+ (Neg); Leukocyte Esterase, Urine Neg (Neg); Protein, Urine 2+ (Neg); Specific Gravity, Urine 1.025 (1.003-1.022); Urobilinogen, Urine NORM (Normal)
[2024-12-21] MEDS ORDERED: Metoclopramide HCl 5MG / ML 2ML Vial IV ONE (19:10)
[2024-12-21 19:15] LABS: BASOPHILS ABSOLUTE AUTO 0.06 K/mm3 (0.00-0.23); BASOPHILS PERCENT AUTO 0 % (0-2); EOSINOPHILS ABSOLUTE AUTO 0.01 K/mm3 (0.00-0.68); EOSINOPHILS PERCENT AUTO 0 % (0-6); Hematocrit 40.9 % (33.0-51.0); Hemoglobin 13.8 g/dL (11.5-16.0); IMMATURE GRAN ABSOLUTE AUTO 0.19 K/mm3 (0.00-0.10); IMMATURE GRAN PERCENT AUTO 1 % (0-1); LYMPHOCYTES ABSOLUTE AUTO 0.92 K/mm3 (0.84-5.20); LYMPHOCYTES PERCENT AUTO 4 % (21-46); MONOCYTES ABSOLUTE AUTO 1.29 K/mm3 (0.16-1.47); MONOCYTES PERCENT AUTO 6 % (4-13); Mean Corpuscular HGB Conc 33.7 g/dL (31.5-36.5); Mean Corpuscular Volume 105 fL (80-100); NEUTROPHILS ABSOLUTE AUTO 19.51 K/mm3 (1.96-9.15); NEUTROPHILS PERCENT AUTO 89 % (41-73); NRBC ABSOLUTE 0.00 K/mm3 (0.00-0.02); NRBC Auto 0.0 /100 WBC (0.0-0.2); Platelet Count 234 K/mm3 (150-400); RDW Coefficient Variation 11.8 % (11.7-14.2); RDW Standard Deviation 46.0 fL (35.1-46.3)
[2024-12-21] MEDS ORDERED: HYDROmorphone HCl/Pf 1MG SYR IV ONE (19:15)
[2024-12-21 19:19] LABS: Color, Urine Pale Yellow (P-Yellow)
[2024-12-21] MEDS ORDERED: Insulin Human Regular 100 UNIT in NS 100 ML IV SCH (19:30)
[2024-12-21 19:38] LABS: Alanine Aminotransfer (ALT/SGP 26.0 U/L (12-78); Albumin, Blood 4.3 g/dL (3.4-5.0); Albumin/Globulin Ratio 1.2 (0.8-1.8); Aspartate Aminotrans (AST/SGOT 20.0 U/L (12-37); Bilirubin, Total 0.4 mg/dL (0.1-1.0); Blood Urea Nitrogen 22.0 mg/dL (8-24); Calcium, Blood 9.2 mg/dL (8.5-10.1); Chloride, Blood 92.0 mmol/L (98-108); Creatinine, Blood 1.09 mg/dL (0.40-1.00); Globulin, Blood 3.5 g/dL (2.2-4.0); Potassium, Blood 5.7 mmol/L (3.5-5.5); Sodium, Blood 126.0 mmol/L (136-145); Total Protein, Blood 7.8 g/dL (6.4-8.2)
[2024-12-21 20:03] LABS: Anion Gap 35.0 mmol/L (3-11); CO2, Blood 5.0 mmol/L (21-32); Glucose, Blood 614.0 mg/dL (70-99)
[2024-12-21] MEDS ORDERED: Sodium Bicarb 8.4% 1 MEQ/ML 50 ML Vial IV ONE (20:10)
[2024-12-21] MEDS ORDERED: HYDROmorphone HCl/Pf 1MG SYR IV PRN (20:15)
[2024-12-21] MEDS ORDERED: Metoclopramide HCl 5MG / ML 2ML Vial IV PRN (20:15)
[2024-12-21 20:40] LABS: Glucose, Blood 590 mg/dL (70-99)
[2024-12-21 21:40] LABS: Anion Gap 30.0 mmol/L (3-11); Blood Urea Nitrogen 17.0 mg/dL (8-24); CO2, Blood 7.0 mmol/L (21-32); Calcium, Blood 8.0 mg/dL (8.5-10.1); Chloride, Blood 98.0 mmol/L (98-108); Creatinine, Blood 1.02 mg/dL (0.40-1.00); Glucose, Blood 416.0 mg/dL (70-99); Potassium, Blood 5.3 mmol/L (3.5-5.5); Sodium, Blood 130.0 mmol/L (136-145)
[2024-12-21] MEDS ORDERED: PRAZ5 PO (21:46)
[2024-12-21] MEDS ORDERED: NS 250 ML IV PRN (22:25)
[2024-12-21] MEDS ORDERED: D5W-1/2NS 1,000 ML IV SCH (23:20)
[2024-12-22] VITALS (39 sets, daily range): BP systolic 111–174; BP diastolic 55–133
[2024-12-22 01:40] LABS: Anion Gap 18.0 mmol/L (3-11); Blood Urea Nitrogen 15.0 mg/dL (8-24); CO2, Blood 17.0 mmol/L (21-32); Calcium, Blood 7.7 mg/dL (8.5-10.1); Chloride, Blood 102.0 mmol/L (98-108); Creatinine, Blood 0.91 mg/dL (0.40-1.00); Glucose, Blood 149.0 mg/dL (70-99); Potassium, Blood 4.4 mmol/L (3.5-5.5); Sodium, Blood 133.0 mmol/L (136-145)
[2024-12-22] MEDS ORDERED: Potassium Chl 20MEQ/Water100ML 100 ML IV SCH (02:45)
[2024-12-22 05:35] LABS: BASOPHILS ABSOLUTE AUTO 0.02 K/mm3 (0.00-0.23); BASOPHILS PERCENT AUTO 0 % (0-2); EOSINOPHILS ABSOLUTE AUTO 0.00 K/mm3 (0.00-0.68); EOSINOPHILS PERCENT AUTO 0 % (0-6); Hematocrit 32.1 % (33.0-51.0); Hemoglobin 11.6 g/dL (11.5-16.0); IMMATURE GRAN ABSOLUTE AUTO 0.05 K/mm3 (0.00-0.10); IMMATURE GRAN PERCENT AUTO 0 % (0-1); LYMPHOCYTES ABSOLUTE AUTO 1.12 K/mm3 (0.84-5.20); LYMPHOCYTES PERCENT AUTO 7 % (21-46); MONOCYTES ABSOLUTE AUTO 1.26 K/mm3 (0.16-1.47); MONOCYTES PERCENT AUTO 8 % (4-13); Mean Corpuscular HGB Conc 36.1 g/dL (31.5-36.5); NEUTROPHILS ABSOLUTE AUTO 12.86 K/mm3 (1.96-9.15); NEUTROPHILS PERCENT AUTO 84 % (41-73); NRBC ABSOLUTE 0.00 K/mm3 (0.00-0.02); NRBC Auto 0.0 /100 WBC (0.0-0.2); Platelet Count 209 K/mm3 (150-400); RDW Coefficient Variation 11.9 % (11.7-14.2); RDW Standard Deviation 42.5 fL (35.1-46.3)
[2024-12-22 05:41] LABS: Mean Corpuscular Volume 97 fL (80-100)
[2024-12-22 05:55] LABS: Anion Gap 14.0 mmol/L (3-11); Blood Urea Nitrogen 12.0 mg/dL (8-24); CO2, Blood 19.0 mmol/L (21-32); Calcium, Blood 7.8 mg/dL (8.5-10.1); Chloride, Blood 104.0 mmol/L (98-108); Creatinine, Blood 0.85 mg/dL (0.40-1.00); Glucose, Blood 149.0 mg/dL (70-99); Potassium, Blood 4.8 mmol/L (3.5-5.5); Sodium, Blood 132.0 mmol/L (136-145)
--- NOTE | 2024-12-22 06:03 | NUR ---
SHIFT SUMMARY PATIENT IS ALERT AND ORIENTED X4. SP02 100% ON RA. HR ST 100-115, DENIES CP/PRESSURE. PATIENT IN INSULING DRIP, Q1H CBGs. REPLACED POTASSIUM. MEDIACTED FOR NAUSEA/VOMITTING PER EMAR. NO BMs THROUGH THIS SHIFT. PATIENT STATES 8/10 ABDOMINAL PAIN THATS MID ABDOMEN AND RADIATES TO THE BACK, WENT TO CT WHILE IN ER. MEDICATED FOR PAIN PER EMAR. SBA TO TOILET. CALL LIGHT IN REACH
[2024-12-22] MEDS ORDERED: Ondansetron HCl 2 MG / ML 2ML Vial IV PRN (07:40)
[2024-12-22] MEDS ORDERED: Enoxaparin 40 MG/0.4 ML SYR SC SCH (09:00)
[2024-12-22 09:30] LABS: Alanine Aminotransfer (ALT/SGP 23.0 U/L (12-78); Albumin, Blood 3.3 g/dL (3.4-5.0); Albumin/Globulin Ratio 1.1 (0.8-1.8); Anion Gap 12.0 mmol/L (3-11); Aspartate Aminotrans (AST/SGOT 16.0 U/L (12-37); Bilirubin, Total 0.3 mg/dL (0.1-1.0); Blood Urea Nitrogen 11.0 mg/dL (8-24); CO2, Blood 20.0 mmol/L (21-32); Calcium, Blood 7.9 mg/dL (8.5-10.1); Chloride, Blood 105.0 mmol/L (98-108); Creatinine, Blood 0.73 mg/dL (0.40-1.00); Globulin, Blood 2.9 g/dL (2.2-4.0); Glucose, Blood 165.0 mg/dL (70-99); Potassium, Blood 4.3 mmol/L (3.5-5.5); Sodium, Blood 133.0 mmol/L (136-145); Total Protein, Blood 6.2 g/dL (6.4-8.2)
--- NOTE | 2024-12-22 11:00 | NUR ---
AM NOTE: THIS RN ASSUMED CARE OF PT AT APPROX 0700, BEDSIDE REPORT FROM NOC RN. PT A/OX4, ABLE TO MAKE NEEDS KNOWN. C/O NAUSEA & VOMITING, SEVERE ABD PAIN; MEDICATED PER EMAR. INSULIN GTT INFUSING, SEE FLOWSHEET FOR TITRATIONS. D51/2NS INFUSING PER ORDERS. HR 90-100'S, SINUS RHYTHM ON MONITOR. SBP 130-140'S, MAP >65. SPO2 >90% ON ROOM AIR, RESPIRATIONS EVEN & UNLABORED. AFEBRILE. ABLE TO REPOSITION INDEPENDENTLY IN BED. PT CALLS APPROPRIATELY FOR ASSISTANCE NEEDED, BED IN LOWEST POSITION.
[2024-12-22 11:43] LABS: Alanine Aminotransfer (ALT/SGP 22.0 U/L (12-78); Albumin, Blood 3.2 g/dL (3.4-5.0); Albumin/Globulin Ratio 1.0 (0.8-1.8); Anion Gap 10.0 mmol/L (3-11); Aspartate Aminotrans (AST/SGOT 18.0 U/L (12-37); Bilirubin, Total 0.3 mg/dL (0.1-1.0); Blood Urea Nitrogen 9.0 mg/dL (8-24); CO2, Blood 22.0 mmol/L (21-32); Calcium, Blood 7.7 mg/dL (8.5-10.1); Chloride, Blood 104.0 mmol/L (98-108); Creatinine, Blood 0.68 mg/dL (0.40-1.00); Globulin, Blood 3.1 g/dL (2.2-4.0); Glucose, Blood 150.0 mg/dL (70-99); Potassium, Blood 4.2 mmol/L (3.5-5.5); Sodium, Blood 132.0 mmol/L (136-145); Total Protein, Blood 6.3 g/dL (6.4-8.2)
[2024-12-22] MEDS ORDERED: Ondansetron HCl 2 MG / ML 2ML Vial IV ONE (12:45)
[2024-12-22] MEDS ORDERED: Metoclopramide HCl 5MG / ML 2ML Vial IV PRN (12:45)
[2024-12-22 17:09] LABS: Alanine Aminotransfer (ALT/SGP 24.0 U/L (12-78); Albumin, Blood 3.4 g/dL (3.4-5.0); Albumin/Globulin Ratio 1.1 (0.8-1.8); Anion Gap 11.0 mmol/L (3-11); Aspartate Aminotrans (AST/SGOT 29.0 U/L (12-37); Bilirubin, Total 0.4 mg/dL (0.1-1.0); Blood Urea Nitrogen 8.0 mg/dL (8-24); CO2, Blood 21.0 mmol/L (21-32); Calcium, Blood 8.4 mg/dL (8.5-10.1); Chloride, Blood 103.0 mmol/L (98-108); Creatinine, Blood 0.78 mg/dL (0.40-1.00); Globulin, Blood 3.2 g/dL (2.2-4.0); Glucose, Blood 188.0 mg/dL (70-99); Potassium, Blood 4.3 mmol/L (3.5-5.5); Sodium, Blood 131.0 mmol/L (136-145); Total Protein, Blood 6.6 g/dL (6.4-8.2)
--- NOTE | 2024-12-22 18:12 | NUR ---
END OF SHIFT NOTE: PT REMAINS NAUSEOUS W/ INTERMITTENT VOMITING THIS SHIFT. ANTINAUSEA MEDS ADMINISTERED PER EMAR. CONTINUES TO C/O MOD-SEV ABD PAIN, MEDICATED PER EMAR W/ RELIEF. PT REMAINS NPO AT THIS TIME, D51/2NS INFUSING W/ INSULIN GTT; SEE FLOWSHEET FOR TITRATIONS. PT UP TO TOILET T/O SHIFT INDEPENDENTLY, REPOSITIONING SELF IN BED. COOL WASHCLOTH & ICE PACKS FOR COMFORT. CALL LIGHT IN REACH.
[2024-12-22 20:40] LABS: Alanine Aminotransfer (ALT/SGP 23.0 U/L (12-78); Albumin, Blood 3.3 g/dL (3.4-5.0); Albumin/Globulin Ratio 1.1 (0.8-1.8); Anion Gap 9.0 mmol/L (3-11); Aspartate Aminotrans (AST/SGOT 21.0 U/L (12-37); Bilirubin, Total 0.2 mg/dL (0.1-1.0); Blood Urea Nitrogen 6.0 mg/dL (8-24); CO2, Blood 23.0 mmol/L (21-32); Calcium, Blood 8.0 mg/dL (8.5-10.1); Chloride, Blood 105.0 mmol/L (98-108); Creatinine, Blood 0.69 mg/dL (0.40-1.00); Globulin, Blood 3.1 g/dL (2.2-4.0); Glucose, Blood 171.0 mg/dL (70-99); Potassium, Blood 3.7 mmol/L (3.5-5.5); Sodium, Blood 133.0 mmol/L (136-145); Total Protein, Blood 6.4 g/dL (6.4-8.2)
[2024-12-22] MEDS ORDERED: Potassium Chl 20MEQ/Water100ML 100 ML IV ONE (21:15)
[2024-12-23] VITALS (29 sets, daily range): BP systolic 111–173; BP diastolic 68–87
[2024-12-23 01:12] LABS: Alanine Aminotransfer (ALT/SGP 25.0 U/L (12-78); Albumin, Blood 3.1 g/dL (3.4-5.0); Albumin/Globulin Ratio 1.0 (0.8-1.8); Anion Gap 8.0 mmol/L (3-11); Aspartate Aminotrans (AST/SGOT 23.0 U/L (12-37); Bilirubin, Total 0.2 mg/dL (0.1-1.0); Blood Urea Nitrogen 4.0 mg/dL (8-24); CO2, Blood 24.0 mmol/L (21-32); Calcium, Blood 7.8 mg/dL (8.5-10.1); Chloride, Blood 107.0 mmol/L (98-108); Creatinine, Blood 0.66 mg/dL (0.40-1.00); Globulin, Blood 3.2 g/dL (2.2-4.0); Glucose, Blood 167.0 mg/dL (70-99); Potassium, Blood 4.0 mmol/L (3.5-5.5); Sodium, Blood 135.0 mmol/L (136-145); Total Protein, Blood 6.3 g/dL (6.4-8.2)
--- NOTE | 2024-12-23 06:44 | NUR ---
SHIFT SUMMERY: PATIENT ALERT AND ORIENT x4. REPORTS CONTINUED PAIN TO RIGHT UPPER ABDOMEN RADIATING TO RIGHT SIDE BACK. TREATED WITH PRN PAIN MEDICATION PER MAR. CONTINUES WITH INTERMITTENT NAUSEA. PATIENT REPORTING NAUSEA IMPROVED AND, PER PATIENT, CURRENT PRN MEDICATION EFFECTIVE TO TREAT NAUSEA. CONTINUES ON INSULIN GTT WITH Q1 HOUR BLOOD GLUCOSE MONITORING. Q4 BMP WITH POTASSIUM REPLACEMENT. NO STOOL NOTED THIS SHIFT. MOVES EXTREMITIES X4 WITH INDEPENDENT ABMULATION TO THE BATHROOM WITH SAFETY MAINTAINED. NPO. EDUCATION PROVIDED ON CURRENT PLAN OF CARE AND PATIENT VERALIZES AGREEMENT WITH CURRENT PLAN AT THIS TIME. SAFETY MAINTAINED THROUGHTOUT SHIFT. ALL NEEDS ADDRESSED THEY AROSE.
[2024-12-23 07:13] LABS: Alanine Aminotransfer (ALT/SGP 26.0 U/L (12-78); Albumin, Blood 3.0 g/dL (3.4-5.0); Albumin/Globulin Ratio 1.0 (0.8-1.8); Anion Gap 9.0 mmol/L (3-11); Aspartate Aminotrans (AST/SGOT 24.0 U/L (12-37); Bilirubin, Total 0.2 mg/dL (0.1-1.0); Blood Urea Nitrogen 4.0 mg/dL (8-24); CO2, Blood 24.0 mmol/L (21-32); Calcium, Blood 7.9 mg/dL (8.5-10.1); Chloride, Blood 107.0 mmol/L (98-108); Creatinine, Blood 0.67 mg/dL (0.40-1.00); Globulin, Blood 3.0 g/dL (2.2-4.0); Glucose, Blood 175.0 mg/dL (70-99); Potassium, Blood 3.6 mmol/L (3.5-5.5); Sodium, Blood 136.0 mmol/L (136-145); Total Protein, Blood 6.0 g/dL (6.4-8.2)
[2024-12-23 07:25] LABS: BASOPHILS ABSOLUTE AUTO 0.02 K/mm3 (0.00-0.23); BASOPHILS PERCENT AUTO 0 % (0-2); EOSINOPHILS ABSOLUTE AUTO 0.01 K/mm3 (0.00-0.68); EOSINOPHILS PERCENT AUTO 0 % (0-6); Hematocrit 32.2 % (33.0-51.0); Hemoglobin 11.4 g/dL (11.5-16.0); IMMATURE GRAN ABSOLUTE AUTO 0.03 K/mm3 (0.00-0.10); IMMATURE GRAN PERCENT AUTO 0 % (0-1); LYMPHOCYTES ABSOLUTE AUTO 0.95 K/mm3 (0.84-5.20); LYMPHOCYTES PERCENT AUTO 9 % (21-46); MONOCYTES ABSOLUTE AUTO 0.73 K/mm3 (0.16-1.47); MONOCYTES PERCENT AUTO 7 % (4-13); Mean Corpuscular HGB Conc 35.4 g/dL (31.5-36.5); NEUTROPHILS ABSOLUTE AUTO 8.41 K/mm3 (1.96-9.15); NEUTROPHILS PERCENT AUTO 83 % (41-73); NRBC ABSOLUTE 0.00 K/mm3 (0.00-0.02); NRBC Auto 0.0 /100 WBC (0.0-0.2); Platelet Count 138 K/mm3 (150-400); RDW Coefficient Variation 12.7 % (11.7-14.2); RDW Standard Deviation 47.8 fL (35.1-46.3)
[2024-12-23 07:29] LABS: Mean Corpuscular Volume 102 fL (80-100)
[2024-12-23] MEDS ORDERED: HYDROcodone 5-APAP 325 TAB PO PRN (08:50)
[2024-12-23] MEDS ORDERED: Diltiazem HCl 180 MG Cap.CD PO SCH (09:00)
[2024-12-23] MEDS ORDERED: Insulin Glargine-Yfgn 100 Unit/mL 3 ML SYR SC SCH (09:00)
--- NOTE | 2024-12-23 10:16 | NUR ---
ASSUMPTION OF CARE [facility] PT RESTING IN BED, SLEEPING BUT AROUSABLE. PT ORIENTED X4, ANSWERS QUESTIONS APPROPIATLEY, FOLLOWS DIRCTION WHEN PROMPTED AND IS ABLE TO MAKE HER NEEDS KNOWN. PT MOVES EXTREMITIES EQUALLY BILATERALLY, AMBULATES IN THE ROOM WITH MINIMAL ASSISTANCE WITH CORD MANAGEMENT. PT COMPLAINING OF ABDOMINAL PAIN, MEDICATED PER EMAR. HR 100-110'S SINUS, SBP 150'S, PT DENIES CP/PRESSURE. PT ON RA, OXYGEN SATURATION >95% ON SPOT CHECK. ABDOMEN TENDER ON PALPATION, PT COMPLAINING OF N/V, MEDICATED PER EMAR. PT AMBULATES TO BEDSIDE TOILET TO VOID. PIV IN PLACE TO RAC AND THELMA. D5 1/2 NS INFUSING AT 10MLS/HR, INSULIN INFUSING, SEE FLOWSHEET FOR TITRATIONS. BED IN LOWEST POSITION, CALL LIGHT WITHIN REACH, CARE CONTINUES.
[2024-12-23 10:40] LABS: Alanine Aminotransfer (ALT/SGP 25.0 U/L (12-78); Albumin, Blood 3.1 g/dL (3.4-5.0); Albumin/Globulin Ratio 1.0 (0.8-1.8); Anion Gap 8.0 mmol/L (3-11); Aspartate Aminotrans (AST/SGOT 25.0 U/L (12-37); Bilirubin, Total 0.5 mg/dL (0.1-1.0); Blood Urea Nitrogen 3.0 mg/dL (8-24); CO2, Blood 24.0 mmol/L (21-32); Calcium, Blood 7.9 mg/dL (8.5-10.1); Chloride, Blood 105.0 mmol/L (98-108); Creatinine, Blood 0.62 mg/dL (0.40-1.00); Globulin, Blood 3.1 g/dL (2.2-4.0); Glucose, Blood 208.0 mg/dL (70-99); Potassium, Blood 3.6 mmol/L (3.5-5.5); Sodium, Blood 133.0 mmol/L (136-145); Total Protein, Blood 6.2 g/dL (6.4-8.2)
[2024-12-23] MEDS ORDERED: Fluticasone 0.05% Nasal Spray SCH (10:40)
[2024-12-23] MEDS ORDERED: D5W-1/2NS KCl 20mEq 1,000 ML IV SCH (11:15)
[2024-12-23] MEDS ORDERED: Insulin Human Lispro 100 Units/ML 3ML Syringe SC SCH (11:30)
[2024-12-23] MEDS ORDERED: Insulin Glargine-Yfgn 100 Unit/mL 3 ML SYR SC ONE (12:00)
[2024-12-23] MEDS ORDERED: Rizatriptan Benzoate 10 MG / TAB SoluTab SL PRN (13:20)
--- NOTE | 2024-12-23 14:19 | NUR ---
PT UPDATE CALLED DR. BARFIELD REGARDING PT GLUCOSE OF 236, ORDERS RECEIVED TO RECHECK GLUCOSE IN ONE HOUR. BED IN LOWEST POSITION, CALL LIGHT WITHIN REACH, CARE CONTINUES.
[2024-12-23] MEDS ORDERED: Insulin Human Lispro 100 Units/ML 3ML Syringe SC ONE (15:20)
--- NOTE | 2024-12-23 15:21 | NUR ---
PT UPDATE CALL PLACED TO DR. BARFIELD REGARDING PT BLOOD SUGAR OF 267, ORDERS RECEIVED, CARE CONTINUES.
[2024-12-23] MEDS ORDERED: DEXTROMETHORPHAN/BENZOCAINE 1 EACH LOZENGE MT PRN (16:40)
--- NOTE | 2024-12-23 17:32 | NUR ---
SHIFT SUMMARY PT CONTINUES TO REST IN BED, ALERT AND ORIENTED X4. PT ANSWERS QUESTIONS APPROPRIATELY, FOLLOWS DIRECTION WHEN PROMPTED AND IS ABLE TO MAKE HER NEEDS KNOWN. PT MOVES EXTREMITIES EQUALLY BILATERALLY, AMBULATES IN THE ROOM INDEPENDENTLY. PT COMPLAINING OF PAIN THIS SHIFT, MEDICATED PER EMAR. HR 90-110'S SINUS, MAP >65, PT DENIES CP/PRESSURE. PT ON RA, OXYGEN SATURATION >95% ON SPOT CHECK. ABDOMEN SOFT, BOWEL TONES ACTIVE THROUGHOUT. PT AMBULATES TO BEDSIDE TOILET TO VOID. PIV IN PLACE TO RAC AND THELMA SL. BED IN LOWEST POSITION, CALL LIGHT WITHIN REACH, CARE CONTINUES.
--- NOTE | 2024-12-23 19:39 | NUR ---
Start of shift: Patient resting in bed with 1:1 sitter sitting with patient in view. LR infusing at 75 cc/hr. Reports, "Some memory loss from the past couple of days". No s/s of distress at this time. Alert and on room air. NSR/ST on the monitor. Safety maintained at this time.
[2024-12-24] VITALS (9 sets, daily range): BP systolic 106–160; BP diastolic 69–87
[2024-12-24 05:02] LABS: BASOPHILS ABSOLUTE AUTO 0.02 K/mm3 (0.00-0.23); BASOPHILS PERCENT AUTO 0 % (0-2); EOSINOPHILS ABSOLUTE AUTO 0.03 K/mm3 (0.00-0.68); EOSINOPHILS PERCENT AUTO 0 % (0-6); Hematocrit 32.2 % (33.0-51.0); Hemoglobin 11.1 g/dL (11.5-16.0); IMMATURE GRAN ABSOLUTE AUTO 0.03 K/mm3 (0.00-0.10); IMMATURE GRAN PERCENT AUTO 0 % (0-1); LYMPHOCYTES ABSOLUTE AUTO 1.18 K/mm3 (0.84-5.20); LYMPHOCYTES PERCENT AUTO 17 % (21-46); MONOCYTES ABSOLUTE AUTO 0.45 K/mm3 (0.16-1.47); MONOCYTES PERCENT AUTO 7 % (4-13); Mean Corpuscular HGB Conc 34.5 g/dL (31.5-36.5); Mean Corpuscular Volume 101 fL (80-100); NEUTROPHILS ABSOLUTE AUTO 5.17 K/mm3 (1.96-9.15); NEUTROPHILS PERCENT AUTO 75 % (41-73); NRBC ABSOLUTE 0.00 K/mm3 (0.00-0.02); NRBC Auto 0.0 /100 WBC (0.0-0.2); Platelet Count 133 K/mm3 (150-400); RDW Coefficient Variation 12.7 % (11.7-14.2); RDW Standard Deviation 47.5 fL (35.1-46.3)
--- NOTE | 2024-12-24 06:12 | NUR ---
SHIFT SUMMERY: PATIENT ALERT AND ORIENT X4. REPORTS NO NAUSEA THROUGHOUT SHIFT BUT REPORTS CONTINUED PAIN TO RIGHT SIDE UPPER ABDOMEN WORSENING WHEN EATING AND DRINKING COFFEE. PATIENT ALSO REPORTS CONTINUED THROAT PAIN. PAIN TREATED WITH PRN MEDICATIONS PER ORDER. CONINUES ON ROOM AIR. ST/NSR ON MONITOR. INDEPENDENT IN ROOM TO AMBULATE TO BATHROOM. BLOOD GLUCOSE ELEVATED MID SHIFT. MD MADE AWARE AND PATIENT INSULIN REGIMN ADJUSTED TO MEDIUM SLIDING SCALE. Q6 BLOOD GLUCOSE MONIORING INITIATED. PATIENT UPDATED ON CURRENT PLAN OF CARE AND VERBALIZES AGREEMENT TO CURRENT PLAN. ALL NEEDS ADRESSED THEY AROSE. SAFETY MAINTAINED.
[2024-12-24 06:15] LABS: Alanine Aminotransfer (ALT/SGP 22.0 U/L (12-78); Albumin, Blood 2.9 g/dL (3.4-5.0); Albumin/Globulin Ratio 0.9 (0.8-1.8); Anion Gap 10.0 mmol/L (3-11); Aspartate Aminotrans (AST/SGOT 17.0 U/L (12-37); Bilirubin, Total 0.6 mg/dL (0.1-1.0); Blood Urea Nitrogen 4.0 mg/dL (8-24); CO2, Blood 26.0 mmol/L (21-32); Calcium, Blood 8.1 mg/dL (8.5-10.1); Chloride, Blood 106.0 mmol/L (98-108); Creatinine, Blood 0.71 mg/dL (0.40-1.00); Globulin, Blood 3.1 g/dL (2.2-4.0); Glucose, Blood 128.0 mg/dL (70-99); Potassium, Blood 3.6 mmol/L (3.5-5.5); Sodium, Blood 138.0 mmol/L (136-145); Total Protein, Blood 6.0 g/dL (6.4-8.2)
[2024-12-24] MEDS ORDERED: HYDROcodone 5-APAP 325 TAB PO PRN (07:45)
[2024-12-24] MEDS ORDERED: Sucralfate 1000MG / 10ML UD BTL PO SCH (11:30)
[2024-12-24] MEDS ORDERED: Insulin Human Lispro 100 Units/ML 3ML Syringe SC SCH ×2 (11:30)
--- NOTE | 2024-12-24 18:37 | NUR ---
Summary. Pt transferred to medical floor room 341. Report given to [facility] on med floor. Pt alert and oriented at time of transfer, no acute needs. All personal belongings sent with pt to new room. Pt taken via wheelchair.
[2024-12-24] MEDS ORDERED: D5W-1/2NS 1,000 ML IV SCH (19:55)
--- NOTE | 2024-12-24 20:24 | NUR ---
PATIENT REPORTING LETHARGIC AND ASKED FOR CBG CHECK: 43. HALF AMP OF DEXTROSE GIVEN 25 mL AND HOSPITALIST NAINA NOTIFIED. REPORTS TO RECHECK X 2 Q30 MIN. RECHECK CB. ALSO D5 1/2 NS STARTED @ 75mL/HR PER ORDERED. WCTM.
--- NOTE | 2024-12-24 23:43 | NUR ---
CBG 105 ON SECOND CHECK AND NEXT 129. D5 1/2 NS INFUSING @ 75mL/HR. PATIENT RESTING. WCTM.
--- NOTE | 2024-12-25 04:05 | NUR ---
SHIFT SUMMARY PATIENT HAD LOW CBG 43 (SEE NOTE). CBG'S NOW: 104,105, 129. ALERT ORIENTED AND INDEPENDENT IN ROOM. NPO. DENIES CHEST PAIN & SOB. VSS/AFEBRILE. NAUSEOUS X ONE AND IV REGLAN GIVEN. PIV INTACT. D5 1/2 NS INFUSING @ 75mL/HR. REPORTED ESOPHAGUS CHEST PAIN T/O SHIFT AND IV DILAUDID 1 MG GIVEN PER EMAR AND NORCO. SLEPT WHEN PAIN MANAGED. CALL LIGHT IN REACH. BED IN LOWEST POSITION. WILL CONTINUE TO MONITOR UNTIL DAY SHIFT NURSE ASSUMES CARE.
[2024-12-25 04:48] LABS: BASOPHILS ABSOLUTE AUTO 0.03 K/mm3 (0.00-0.23); BASOPHILS PERCENT AUTO 1 % (0-2); EOSINOPHILS ABSOLUTE AUTO 0.07 K/mm3 (0.00-0.68); EOSINOPHILS PERCENT AUTO 1 % (0-6); Hematocrit 29.9 % (33.0-51.0); Hemoglobin 10.4 g/dL (11.5-16.0); IMMATURE GRAN ABSOLUTE AUTO 0.01 K/mm3 (0.00-0.10); IMMATURE GRAN PERCENT AUTO 0 % (0-1); LYMPHOCYTES ABSOLUTE AUTO 1.25 K/mm3 (0.84-5.20); LYMPHOCYTES PERCENT AUTO 26 % (21-46); MONOCYTES ABSOLUTE AUTO 0.48 K/mm3 (0.16-1.47); MONOCYTES PERCENT AUTO 10 % (4-13); Mean Corpuscular HGB Conc 34.8 g/dL (31.5-36.5); Mean Corpuscular Volume 101 fL (80-100); NEUTROPHILS ABSOLUTE AUTO 2.99 K/mm3 (1.96-9.15); NEUTROPHILS PERCENT AUTO 62 % (41-73); NRBC ABSOLUTE 0.00 K/mm3 (0.00-0.02); NRBC Auto 0.0 /100 WBC (0.0-0.2); Platelet Count 135 K/mm3 (150-400); RDW Coefficient Variation 12.3 % (11.7-14.2); RDW Standard Deviation 46.4 fL (35.1-46.3)
[2024-12-25 05:12] LABS: Alanine Aminotransfer (ALT/SGP 21.0 U/L (12-78); Albumin, Blood 2.7 g/dL (3.4-5.0); Albumin/Globulin Ratio 0.8 (0.8-1.8); Anion Gap 7.0 mmol/L (3-11); Aspartate Aminotrans (AST/SGOT 18.0 U/L (12-37); Bilirubin, Total 0.4 mg/dL (0.1-1.0); Blood Urea Nitrogen 4.0 mg/dL (8-24); CO2, Blood 28.0 mmol/L (21-32); Calcium, Blood 7.9 mg/dL (8.5-10.1); Chloride, Blood 104.0 mmol/L (98-108); Creatinine, Blood 0.68 mg/dL (0.40-1.00); Globulin, Blood 3.2 g/dL (2.2-4.0); Glucose, Blood 246.0 mg/dL (70-99); Potassium, Blood 3.6 mmol/L (3.5-5.5); Sodium, Blood 135.0 mmol/L (136-145); Total Protein, Blood 5.9 g/dL (6.4-8.2)
[2024-12-25 06:11] VITALS: BP 128/69
[2024-12-25 07:22] VITALS: BP 132/77
[2024-12-25 15:35] VITALS: BP 129/77
[2024-12-25] MEDS ORDERED: CefTRIAXone Sodium 1,000 MG in NS 100 ML IV SCH (16:00)
--- NOTE | 2024-12-25 17:08 | NUR ---
SHIFT SUMMARY: A&OX4 THIS SHIFT. AMBULATORY IN ROOM INDEPENDENTLY. COOPERATIVE WITH CARE. MEDICATED MULTIPLE TIMES THIS SHIFT FOR PAIN PER EMAR. PT DENIES SHORTNESS OF BREATH AND/OR CHEST PAIN. NO ACUTE EVENTS THIS SHIFT. PT NPO SINCE APPROXIMATELY 1100 AWAITING SURGICAL CONSULT FROM DR. PUENTE. LYING IN BED AT THIS TIME. BREATHING EQUAL AND NONLABORED. BED LOCKED AND IN THE LOWEST POSITION. CALL LT WITHIN REACH.
--- NOTE | 2024-12-25 17:43 | NUR ---
NOTE: DR PUENTE IN TO SEE PT. PLAN FOR ENDOSCOPY TOMORROW. NPO AT 0000.
[2024-12-25 19:27] VITALS: BP 137/74
[2024-12-26 05:51] LABS: BASOPHILS ABSOLUTE AUTO 0.02 K/mm3 (0.00-0.23); BASOPHILS PERCENT AUTO 1 % (0-2); EOSINOPHILS ABSOLUTE AUTO 0.09 K/mm3 (0.00-0.68); EOSINOPHILS PERCENT AUTO 3 % (0-6); Hematocrit 29.9 % (33.0-51.0); Hemoglobin 10.1 g/dL (11.5-16.0); IMMATURE GRAN ABSOLUTE AUTO 0.01 K/mm3 (0.00-0.10); IMMATURE GRAN PERCENT AUTO 0 % (0-1); LYMPHOCYTES ABSOLUTE AUTO 0.89 K/mm3 (0.84-5.20); LYMPHOCYTES PERCENT AUTO 27 % (21-46); MONOCYTES ABSOLUTE AUTO 0.40 K/mm3 (0.16-1.47); MONOCYTES PERCENT AUTO 12 % (4-13); Mean Corpuscular HGB Conc 33.8 g/dL (31.5-36.5); Mean Corpuscular Volume 104 fL (80-100); NEUTROPHILS ABSOLUTE AUTO 1.94 K/mm3 (1.96-9.15); NEUTROPHILS PERCENT AUTO 58 % (41-73); NRBC ABSOLUTE 0.00 K/mm3 (0.00-0.02); NRBC Auto 0.0 /100 WBC (0.0-0.2); Platelet Count 163 K/mm3 (150-400); RDW Coefficient Variation 12.2 % (11.7-14.2); RDW Standard Deviation 46.3 fL (35.1-46.3)
[2024-12-26] MEDS ORDERED: Insulin Regular 100 UNIT/ML 10ML Vial SC SCH (06:00)
--- NOTE | 2024-12-26 06:04 | NUR ---
Fish And Game Warden Contacted Dr. Kalen Landeros called RE increasing blood sugars. Patient receiving D5% 1/2NS @ 75mLs/hour, currently NPO for planned EGD, with an episode of hypoglycemia (43) yesterday which was difficult to bring up according to patient, and also a type 1 diabetic. Blood sugar currently 266 from a 169 at the start of shift. Patient is also here for DKA with sugars >[address] Landeros is reviewing the chart and will be changing some orders around. Ordered to give Regular Insulin at Medium Correction Scale now. He will be d/c'ing the lispro and changing frequency of blood sugar checks from ACHS to q6h now that she is NPO.
[2024-12-26 06:18] LABS: Alanine Aminotransfer (ALT/SGP 24.0 U/L (12-78); Albumin, Blood 2.7 g/dL (3.4-5.0); Albumin/Globulin Ratio 0.8 (0.8-1.8); Anion Gap 8.0 mmol/L (3-11); Aspartate Aminotrans (AST/SGOT 25.0 U/L (12-37); Bilirubin, Total 0.2 mg/dL (0.1-1.0); Blood Urea Nitrogen 4.0 mg/dL (8-24); CO2, Blood 27.0 mmol/L (21-32); Calcium, Blood 8.0 mg/dL (8.5-10.1); Chloride, Blood 106.0 mmol/L (98-108); Creatinine, Blood 0.67 mg/dL (0.40-1.00); Globulin, Blood 3.2 g/dL (2.2-4.0); Glucose, Blood 243.0 mg/dL (70-99); Potassium, Blood 3.5 mmol/L (3.5-5.5); Sodium, Blood 137.0 mmol/L (136-145); Total Protein, Blood 5.9 g/dL (6.4-8.2)
--- NOTE | 2024-12-26 07:10 | NUR ---
12/26/24 0710 Jessika Page WITH MANPREET HENSLEY CRNA. SEE ANESTHESIA RECORDS.
--- NOTE | 2024-12-26 07:16 | NUR ---
Shift Summary AOx4. Ad alix. Patient has been asking for dilaudid to help her sleep and manage her constant 7-8/10 pain. Patient reports sometimes Ambien and her Minipress doesn't do much to help her sleep. Pain is adequately managed with the Dilaudid. Advised to try [place] prior to IV dilaudid, patient was hesitant but took it anyway and said [place] doesn't even touch her pain. Dilaudid given throughout the night. Pleasant, but anxious. VSS, afebrile. No other acute concerns at this time. NPO for planned EGD today.
[2024-12-26 07:24] VITALS: BP 133/111
--- NOTE | 2024-12-26 07:33 | NUR ---
PATIENT OFF FLOOR WITH SURGICAL STAFF
[2024-12-26 07:41] VITALS: BP 154/75
--- NOTE | 2024-12-26 08:38 | NUR ---
RETURNED TO MEDICAL FLOOR
[2024-12-26] MEDS ORDERED: Rocuronium Bromide 10 MG/ML 5ML Injection IV ONE (09:54)
[2024-12-26] MEDS ORDERED: SuccINYLCHOLINE Chloride 100 MG/5 ML 5MLSYR ONE (09:54)
[2024-12-26] MEDS ORDERED: FentaNYL Citrate 50 MCG/ML 2 ML Injection ONE (09:54)
[2024-12-26] MEDS ORDERED: Divalproex Sodium 500 MG TABCR PO SCH (10:00)
[2024-12-26 14:30] VITALS: BP 127/66
--- NOTE | 2024-12-26 17:45 | NUR ---
DISCHARGE SUMMARY PATIENT REPORTS PAIN THROUGHOUT SHIFT DESPITE RECEIVING DILAUDED Q2 ENTIRE SHIFT. OFFERED REGULAR MEALS, PATIENT TOLERATING MAYBE 2 BITES PER MEAL. MONITORING GLUCOSE LEVELS WITH PERSONAL DEVICE, CONTINUES ON FLUIDS. INDEPENDENT IN ROOM. EGD PERFORMED WITHOUT COMPLICATION THIS AM, RESULTS WERE DISCUSSED BY SURGEON.
[2024-12-26 19:48] VITALS: BP 142/69
[2024-12-27 00:13] VITALS: BP 130/65
--- NOTE | 2024-12-27 04:07 | NUR ---
SHIFT SUMMARY: PT ASKED FOR DILAUDID SEVERAL TIMES DURING THE SHIFT PT STATED "TO HELP THEM SLEEP" PT EDUCATED THAT DILAUDID IS A PAIN MEDICATION AND IS NOT FOR SLEEP. PT THEN ASKED FOR DILAUDID FOR PAIN. PT CONTINUED TO ASK SEVERAL TIMES THROUGH OUT THE NIGHT FOR DILAUDID TO HELP THEM SLEEP AND PT EDUCATED ON WHAT DILAUDID IS USED FOR. PT THEN WOULD ASK FOR DILAUDID FOR PAIN AFTER EDUCATION WAS PROVIDED NO ACUTE CHANGES THIS SHIFT. D5W RUNNING AT 75 MLS/HR.
[2024-12-27 05:07] VITALS: BP 134/63
[2024-12-27 06:22] LABS: Alanine Aminotransfer (ALT/SGP 24.0 U/L (12-78); Albumin, Blood 2.8 g/dL (3.4-5.0); Albumin/Globulin Ratio 0.8 (0.8-1.8); Anion Gap 6.0 mmol/L (3-11); Aspartate Aminotrans (AST/SGOT 20.0 U/L (12-37); Bilirubin, Total 0.2 mg/dL (0.1-1.0); Blood Urea Nitrogen 5.0 mg/dL (8-24); CO2, Blood 27.0 mmol/L (21-32); Calcium, Blood 8.8 mg/dL (8.5-10.1); Chloride, Blood 107.0 mmol/L (98-108); Creatinine, Blood 0.59 mg/dL (0.40-1.00); Globulin, Blood 3.4 g/dL (2.2-4.0); Glucose, Blood 165.0 mg/dL (70-99); Potassium, Blood 3.6 mmol/L (3.5-5.5); Sodium, Blood 136.0 mmol/L (136-145); Total Protein, Blood 6.2 g/dL (6.4-8.2)
[2024-12-27 06:35] LABS: BASOPHILS ABSOLUTE AUTO 0.02 K/mm3 (0.00-0.23); BASOPHILS PERCENT AUTO 0 % (0-2); EOSINOPHILS ABSOLUTE AUTO 0.10 K/mm3 (0.00-0.68); EOSINOPHILS PERCENT AUTO 2 % (0-6); Hematocrit 31.5 % (33.0-51.0); Hemoglobin 10.6 g/dL (11.5-16.0); IMMATURE GRAN ABSOLUTE AUTO 0.02 K/mm3 (0.00-0.10); IMMATURE GRAN PERCENT AUTO 0 % (0-1); LYMPHOCYTES ABSOLUTE AUTO 1.25 K/mm3 (0.84-5.20); LYMPHOCYTES PERCENT AUTO 27 % (21-46); MONOCYTES ABSOLUTE AUTO 0.64 K/mm3 (0.16-1.47); MONOCYTES PERCENT AUTO 14 % (4-13); Mean Corpuscular HGB Conc 33.7 g/dL (31.5-36.5); Mean Corpuscular Volume 105 fL (80-100); NEUTROPHILS ABSOLUTE AUTO 2.59 K/mm3 (1.96-9.15); NEUTROPHILS PERCENT AUTO 56 % (41-73); NRBC ABSOLUTE 0.00 K/mm3 (0.00-0.02); NRBC Auto 0.0 /100 WBC (0.0-0.2); Platelet Count 174 K/mm3 (150-400); RDW Coefficient Variation 12.3 % (11.7-14.2); RDW Standard Deviation 47.8 fL (35.1-46.3)
[2024-12-27 08:15] VITALS: BP 117/58
[2024-12-27] MEDS ORDERED: OxyCODONE 10/Acetamin 325 TABLET PO PRN (08:25)
--- NOTE | 2024-12-27 08:25 | NUR ---
CONTACTED DR FUENTES, REQUESTING CHANGE TO PAIN MEDICATION REGIMEN PATIENT IS SET TO DISCHARGE AND STILL RECEIVING IV DOSES. ORDER RECEIVED FOR PERCOCET AND DC NORCO AND DILAUDED. PATIENT IN BED EATING BREAKFAST, LOOKING COMFORTABLE, -NO VISIBLE DISTRESS, CONTINUES TO REPORT 7-9/10 PAIN.
--- NOTE | 2024-12-27 09:42 | NUR ---
PATIENT HAS BEEN TRACKING BLOOD SUGARS WITH HOME MONITOR, AT TIME OF GLARGINE ADMINISTRATION BLODD SUGAR WAS 159 PER SAID MONITOR. MONITOR WAS WITHIN 5 POINTS SIMILARITY WITH HOSPITAL MONITOR YESTERDAY.
[2024-12-27] MEDS ORDERED: Percocet 5-3251 EACH PO (10:32)
[2024-12-27] MEDS ORDERED: PANT40 (10:32)
[2024-12-27] MEDS ORDERED: PANT40 PO (10:32)
[2024-12-27] MEDS ORDERED: SUCR1 PO (10:33)
--- NOTE | 2024-12-27 13:06 | NUR ---
DISCHARGE SUMMARY PATIENT DISCHARGED HOME WITH SPOUSE TO DRIVE. A/O X4. IV REMOVED WITHOUT COMPLICATION. DISCHARGE PACKET GIVEN AND REVIEWED, QUESTIONS ANSWERED, VERBALIZED UNDERSTANDING. HARD SCRIPT FOR PERCOCET SENT.
== END 2024-12-27 10:55 | disposition home or self-care (01) | DRG 637 ==
LOC: ER 18:16 → ICUE 20:08 → MEDS 20:08 → ICUE 21:20 → MEDS 12-24 18:40
PROVIDERS: Emergency Medicine; Family Medicine; Nurse Practitioner Acute Care; Surgery; ADMIT Student in an Organized Health Care Education/Training Program
PROC: 3E03329 Introduction of Other Anti-infective into Peripheral Vein, Percutaneous Approach (ICD-10-PCS; 2024-12-25)
PROC: 0DB38ZX Excision of Lower Esophagus, Via Natural or Artificial Opening Endoscopic, Diagnostic (ICD-10-PCS; principal; 2024-12-26 08:00)
DX: E10.10 Type 1 diabetes mellitus with ketoacidosis without coma (principal); J18.9 Pneumonia, unspecified organism; J98.11 Atelectasis; I10 Essential (primary) hypertension; K20.90 Esophagitis, unspecified without bleeding; E87.6 Hypokalemia; M79.7 Fibromyalgia; Z88.2 Allergy status to sulfonamides; Z88.1 Allergy status to other antibiotic agents; Z88.5 Allergy status to narcotic agent; Z91.048 Other nonmedicinal substance allergy status; Z79.4 Long term (current) use of insulin; Z79.899 Other long term (current) drug therapy; Z86.79 Personal history of other diseases of the circulatory system; Z90.49 Acquired absence of other specified parts of digestive tract; Z90.710 Acquired absence of both cervix and uterus; Z98.890 Other specified postprocedural states; Z98.891 History of uterine scar from previous surgery
CPT/HCPCS: 36415; 71045; 74177; 80048; 80053; 81001; 82010; 82803; 82947; 83690; 84484; 85025; 93005; 93010; 96361; 96374-59; 96375; 99285-25; A9270; J0330; J0696; J1171; J1650; J1815; J2405; J2704; J2765; J3010; J3480; J7042; J7050; J7120; Q9967

== ENCOUNTER 2025-04-22 11:36 | Emergency (ER) | payer OTHER ==
[~2025-04-22] VITALS: Ht 167.6 cm; Wt 74.8 kg
[~2025-04-22 11:36] MED LIST changes: +HUMALOG KW100 UNIT/1 SC; +INSULANI SC; +PANT40; +PANT40 PO; +PRAZ5 PO; +SUCR1 PO
[2025-04-22] MEDS ORDERED: NS 1,000 ML IV SCH (12:10)
[2025-04-22] MEDS ORDERED: Ondansetron HCl 2 MG / ML 2ML Vial IV ONE (12:10)
[2025-04-22 12:38] LABS: pH Blood Venous 7.49 (7.34-7.37)
[2025-04-22 12:45] LABS: BASOPHILS ABSOLUTE AUTO 0.04 K/mm3 (0.00-0.23); BASOPHILS PERCENT AUTO 0 % (0-2); EOSINOPHILS ABSOLUTE AUTO 0.01 K/mm3 (0.00-0.68); EOSINOPHILS PERCENT AUTO 0 % (0-6); Hematocrit 40.4 % (33.0-51.0); Hemoglobin 14.1 g/dL (11.5-16.0); IMMATURE GRAN ABSOLUTE AUTO 0.05 K/mm3 (0.00-0.10); IMMATURE GRAN PERCENT AUTO 0 % (0-1); LYMPHOCYTES ABSOLUTE AUTO 0.69 K/mm3 (0.84-5.20); LYMPHOCYTES PERCENT AUTO 6 % (21-46); MONOCYTES ABSOLUTE AUTO 0.83 K/mm3 (0.16-1.47); MONOCYTES PERCENT AUTO 7 % (4-13); Mean Corpuscular HGB Conc 34.9 g/dL (31.5-36.5); Mean Corpuscular Volume 97 fL (80-100); NEUTROPHILS ABSOLUTE AUTO 10.90 K/mm3 (1.96-9.15); NEUTROPHILS PERCENT AUTO 87 % (41-73); NRBC ABSOLUTE 0.00 K/mm3 (0.00-0.02); NRBC Auto 0.0 /100 WBC (0.0-0.2); Platelet Count 173 K/mm3 (150-400); RDW Coefficient Variation 11.9 % (11.7-14.2); RDW Standard Deviation 42.8 fL (35.1-46.3)
[2025-04-22] MEDS ORDERED: Metoclopramide HCl 5MG / ML 2ML Vial IV ONE (12:45)
[2025-04-22 13:04] LABS: CORONAVIRUS COVID-19 AG Negative (NEGATIVE)
[2025-04-22 13:12] LABS: Alanine Aminotransfer (ALT/SGP 28.0 U/L (12-78); Albumin, Blood 4.1 g/dL (3.4-5.0); Albumin/Globulin Ratio 1.1 (0.8-1.8); Anion Gap 10.0 mmol/L (3-11); Aspartate Aminotrans (AST/SGOT 24.0 U/L (12-37); Bilirubin, Total 0.3 mg/dL (0.1-1.0); Blood Urea Nitrogen 15.0 mg/dL (8-24); CO2, Blood 26.0 mmol/L (21-32); Calcium, Blood 9.0 mg/dL (8.5-10.1); Chloride, Blood 101.0 mmol/L (98-108); Creatinine, Blood 0.97 mg/dL (0.40-1.00); Globulin, Blood 3.7 g/dL (2.2-4.0); Glucose, Blood 173.0 mg/dL (70-99); Potassium, Blood 3.9 mmol/L (3.5-5.5); Sodium, Blood 133.0 mmol/L (136-145); Total Protein, Blood 7.8 g/dL (6.4-8.2)
[2025-04-22 14:30] VITALS: BP 138/71
== END 2025-04-22 14:51 | disposition home or self-care (01) ==
LOC: ER 11:36
PROVIDERS: Physician Assistant; Student in an Organized Health Care Education/Training Program
DX: E10.65 Type 1 diabetes mellitus with hyperglycemia (principal); E10.10 Type 1 diabetes mellitus with ketoacidosis without coma; E86.0 Dehydration; R07.89 Other chest pain; E10.22 Type 1 diabetes mellitus with diabetic chronic kidney disease; R06.02 Shortness of breath; Z91.040 Latex allergy status; Z88.2 Allergy status to sulfonamides; Z79.899 Other long term (current) drug therapy; Z90.710 Acquired absence of both cervix and uterus
CPT/HCPCS: 71046; 80053; 82010; 82803; 82947; 84484; 85025; 85379; 87428-QW; 93005; 93010; 96374; 96375; 99285-25; J2405; J2765; J7030